=== PATIENT | female | born 2000 | race Hispanic/Latino ===

== ENCOUNTER 2018-09-12 01:53 | Inpatient (IN) | payer BC ==
[2018-09-12 02:27] LABS: Absolute Lymphocytes (CBC) 2.3 K/uL (0.7-4.9); Absolute Monocytes 0.3 K/uL (0.1-1.3); Absolute Neutrophil 2.2 K/uL (1.8-8.0); Basophils % 0.5 % (0-1.3); Eosinophils % 0.5 % (0-4.4); Hematocrit 33.2 % (36.0-45.0); Lymphocytes % 46.6 % (15.3-44.8); MCV 99.6 fL (80-100); Monocytes % 6.5 % (3.3-12.3); RBC Red Blood Cell Count 3.34 M/uL (3.86-4.86)
[2018-09-12] MEDS ORDERED: MAGNESIUM SULFATE 1 gm IVPB 1 GM/100 ML BAG IV ONE ×4 (02:31→17:59)
[2018-09-12] MEDS ORDERED: NA CHLORIDE 0.9% 1,000 ML ONE ×3 (02:31→04:07)
[2018-09-12 02:42] LABS: Protime INR 1.18
[2018-09-12 03:04] LABS: Barbiturates NEGATIVE (NEGATIVE); Benzodiazepines NEGATIVE (NEGATIVE); Cocaine NEGATIVE (NEGATIVE); METHAMPHETAM NEGATIVE (NEGATIVE); Methadone NEGATIVE (NEGATIVE); Opiates NEGATIVE (NEGATIVE); Phencyclidine NEGATIVE (NEGATIVE); THC Cannibis NEGATIVE (NEGATIVE)
[2018-09-12 03:19] LABS: ALT/SGPT 27 U/L (12-78); AST/SGOT 17 U/L (15-37); Albumin 3.6 g/dL (3.4-5.0); Alkaline Phosphatase 66 U/L (45-117); BUN Blood Urea Nitrogen 9 mg/dL (7-18); Bicarbonate 20 mmol/L (21-32); Bilirubin Direct 0.2 mg/dL (0-0.2); Bilirubin Total 0.4 mg/dL (0.2-1.0); Glucose Level 198 mg/dL (74-106); Magnesium 1.8 mg/dL (1.8-2.4); NT PRO-BNP 14 pg/mL (<125); Sodium Level 139 mmol/L (136-145); Troponin (Emerg Dept Use Only) < 0.02 ng/mL (0.0-0.045)
[2018-09-12 03:34] LABS: Potassium 2.8 mmol/L (3.5-5.1)
[2018-09-12 03:36] LABS: Urine Blood 2+ (NEG); Urine Glucose 2+ (NEG); Urine Protein NEGATIVE (NEG); Urine Specific Gravity >1.030 (1.005-1.030)
[2018-09-12 03:36] LABS: Urine Specific Gravity >1.030 (1.005-1.030)
--- NOTE | 2018-09-12 03:45 | ER ---
Nurse's Notes [facility] Name: Celeste Martinez Age: 18 yrs Sex: Female : 2000 Arrival Date: 09/12/2018 Time: 01:55 Bed 3 Private MD: Diagnosis: Suicide attempt-seroquel, alcohol, tylenol overdose;Hypokalemia;Urinary tract infection, site not specified Presentation: 09/12 01:59 Presenting complaint: EMS states: Tone up for an overdose of Seroquel, Tylenol, and ao unknown amount of ETOH. A suicidal note was found where patient states she took 22 pills. Prescription of Seroquel was fill on 09/07/2018 and 9 pill was left when patient was found. Unknown amount of Tylenol and unknown amount of ETOH. Poison control was called by EMS and Bruce Mcgarry from poison control recommends seizure precautions and magnesium. Transition of care: patient was not received from another setting of care. Onset of symptoms was September 12, 2018 at 00:00. Risk Assessment: Do you want to hurt yourself or someone else? Patient reports no desire to harm self or others. Initial Sepsis Screen: Does the patient meet any 2 criteria? Temp <36.0*C (96.8*F)) or > 38.3*C (100.9*F). Systolic BP < 90 mmHg. Altered Mental Status. No. Patient's initial sepsis screen is negative. Does the patient have a suspected source of infection? No. Patient's initial sepsis screen is negative. Care prior to arrival: Medication(s) given: Normal saline infusion, 300 Ml IV initiated. 20 GA, in the right antecubital area. 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 - Social history:: Smoking status: . - Family history:: not pertinent. - Ebola Screening: : No symptoms or risks identified at this time. Screenin:42 Abuse screen: Denies threats or abuse. Denies injuries from another. Nutritional ao screening: No deficits noted. Tuberculosis screening: No symptoms or risk factors identified. Fall Risk IV access (20 points). Gait- Impaired (20 pts.). Mental Status- Overestimates/Forgets Limitations (15 pts.). Assessment: 02:15 General: Appears ill, Behavior is Responds to painful stimuli. Pain: Unable to use pain ea scale. FLACC scale score is 0 out of 10. Neuro: Level of Consciousness is Responds to painful stimuli follows some commands at times. Oriented to none Pupils are pinpoint. Cardiovascular: Heart tones S1 S2 present. Respiratory: Airway is patent Respiratory effort is even, unlabored, Respiratory pattern is regular, symmetrical. Respiratory: Breath sounds are clear bilaterally. GI: Bowel sounds present X 4 quads. Derm: Skin is moist, Skin is pale, Skin temperature is cool. Derm: Bear hugger placed on pt. 02:56 Reassessment: Spoke to Augustin from poison control to confirm given recommendations by ao EMS. Recommendations are seizures precautions, To recheck Tylenol level within 4 hours, IV fluids, Labs BNP, CBC, Toxicity level and a psych consult. 03:41 Reassessment: Patient and/or family updated on plan of care and expected duration. Pain ea level reassessed. Pt resting with eyes closed, respirations even and unlabored, chest expansions even and symmetrical. No s/s of pain or discomfort noted at this time. Family remains at bedside. 04:50 Reassessment: Patient and/or family updated on plan of care and expected duration. Pain ea level reassessed. Pt resting with eyes closed, respirations even and unlabored, chest expansions even and symmetrical. No s/s of pain or discomfort noted at this time. Pt awakens to painful stimuli or loud verbal stimuli. 05:21 Reassessment: Patient and/or family updated on plan of care and expected duration. Pain ea level reassessed. Respiratory at bedside. 05:32 Reassessment: Patient and/or family updated on plan of care and expected duration. Pain ea level reassessed. Report called to Receiving nurse in ICU. 06:00 Reassessment: Patient and/or family updated on plan of care and expected duration. Pain ea level reassessed. Pt returned from CT, tech reports patient was shaking after finishing her CT, BP 80/34, HR 137 provider notified, order obtained for NS bolus. Pt tolerating well. 06:08 Reassessment: Pt continues to get NS, BP 90/40, pt resting with eyes closed, ea respirations even and unlabored, provider gave ok to transfer to ICU. Pt left ED via stretcher per nurse and quality control lab tech. Psych: 02:15 Objective:. Interventions: Removed personal items and placed in bag. Patient placed in ea hospital gown. Suicide Risk Assessment: Sad Person Scale: Sex of patient: Female: Score 0 points. Age of patient: Score 1 point if patient 15-34. Safety Checks: personal items given to family. pt non responsive, unable to answer question. Vital Signs: 02:10 BP 91 / 56; Pulse 126; Resp 18; Temp 95.3(R); Pulse Ox 100% on R/A; Weight 54.43 kg; ao Height 5 ft. 4 in. (162.56 cm); 03:00 BP 95 / 45 LA Supine (auto/pedi); Pulse 127; Resp 12 S; Temp 96.2(A); Pulse Ox 100% on ds4 R/A; 03:54 BP 102 / 53 LA Supine (auto/pedi); Pulse 120 MON; Resp 10 S; Temp 97.5(A); Pulse Ox 99% ds4 on R/A; 04:46 BP 98 / 43 LA Supine (auto/pedi); Pulse 134 MON; Resp 20 S; Temp 97.6(A); Pulse Ox 96% ds4 on R/A; 05:00 BP 90 / 46; Pulse 120; Resp 16; Pulse Ox 97% ; ea 06:08 BP 90 / 40; Pulse 135; Resp 16; Temp 97.6(A); Pulse Ox 98% ; ea 02:10 Body Mass Index 20.60 (54.43 kg, 162.56 cm) ao ED Course: 01:55 Patient arrived in ED. ao 01:56 Miguel Angel Sorensen MD is Attending Physician. sugey 02:10 Triage completed. ao 02:11 Arm band placed on right wrist. Patient placed in an exam room, on a stretcher, on ao classroom monitor, on pulse oximetry, Patient notified of wait time. 02:15 Eve Roberts, RN is Primary Nurse. ea 02:15 Safety checks: Door open/sign placed on door: yes. Family/friend present: yes. ds4 Family/friends encouraged to stay with patient. Sitter present: Yes. 02:22 X-ray completed. Portable x-ray completed in exam room. Patient tolerated procedure ls3 well. 02:24 XRAY Chest (1 view) In Process Unspecified. EDMS 02:30 Safety checks: Door open/sign placed on door: yes. Family/friend present: yes. ds4 Family/friends encouraged to stay with patient. Sitter present: Yes. 02:30 EKG done, by ED staff, reviewed by Miguel Angel Sorensen MD. ds4 02:41 Urine --Ancillary (enter results) Sent. ds4 02:41 Urine Dipstick--Ancillary (enter results) Sent. ds4 02:41 Basic Metabolic Panel Sent. ds4 02:41 Acetaminophen Level Sent. ds4 02:41 Magnesium Sent. ds4 02:41 NT PRO-BNP Sent. ds4 02:41 Troponin (emerg Dept Use Only) Sent. ds4 02:41 Acetaminophen Sent. ds4 02:41 Basic Metabolic Panel Sent. ds4 02:42 Hepatic Function Sent. ds4 02:42 PT-INR Sent. ds4 02:42 Salicylate Sent. ds4 02:42 Urine Drug Screen Sent. ds4 02:43 Patient has correct armband on for positive identification. Allergy band placed. Placed ao in gown. Bed in low position. Call light in reach. Adult w/ patient. Seizure precautions initiated. Sitter at bedside. Pulse ox on. NIBP on. 02:43 secured entrance monitor on. ao 02:45 Safety checks: Door open/sign placed on door: yes. Family/friend present: yes. ds4 Family/friends encouraged to stay with patient. Sitter present: Yes. 03:00 Safety checks: Door open/sign placed on door: yes. Family/friend present: yes. ds4 Family/friends encouraged to stay with patient. Sitter present: Yes. 03:15 Safety checks: Door open/sign placed on door: yes. Family/friend present: yes. ds4 Family/friends encouraged to stay with patient. Sitter present: Yes. 03:30 Safety checks: Door open/sign placed on door: yes. Family/friend present: yes. ds4 Family/friends encouraged to stay with patient. Sitter present: Yes. 03:44 Michelle Pelletier MD is Hospitalizing Provider. [facility] 03:45 Safety checks: Door open/sign placed on door: yes. Family/friend present: yes. ds4 Family/friends encouraged to stay with patient. Sitter present:. 04:00 Safety checks: Door open/sign placed on door: yes. Family/friend present: yes. ds4 Family/friends encouraged to stay with patient. Sitter present: Yes. 04:06 Phosphorus Sent. ds4 04:06 Tylenol Level Sent. ds4 04:15 Safety checks: Door open/sign placed on door: yes. Family/friend present: yes. ds4 Family/friends encouraged to stay with patient. Sitter present: Yes. 04:30 Safety checks: Door open/sign placed on door: yes. Family/friend present: yes. ds4 Family/friends encouraged to stay with patient. Sitter present: Yes. 04:45 Safety checks: Door open/sign placed on door: yes. Family/friend present: yes. ds4 Family/friends encouraged to stay with patient. Sitter present: Yes. 04:53 No provider procedures requiring assistance completed. Patient admitted, IV remains in ea place. 05:00 Safety checks: Door open/sign placed on door: yes. Family/friend present: yes. ds4 Family/friends encouraged to stay with patient. Sitter present: Yes. 05:15 Safety checks: Door open/sign placed on door: yes. Family/friend present: yes. ds4 Family/friends encouraged to stay with patient. Sitter present: Yes. 05:30 Safety checks: Door open/sign placed on door: yes. Family/friend present: no. Sitter ds4 present: Yes. 05:[address] via stretcher. kw1 05:38 CT completed. Patient tolerated procedure well. Patient moved to CT Patient moved back kw1 from CT. 05:45 Safety checks: Door open/sign placed on door: yes. Family/friend present: no. Sitter ds4 present: Yes. Administered Medications: 02:40 Drug: NS 0.9% 1000 ml Route: IV; Rate: 1 bolus; Site: right antecubital; ea 03:20 Follow up: Response: No adverse reaction; IV Status: Completed infusion; IV Intake: ea 1000ml 02:40 Drug: Magnesium Sulfate 1 grams Route: IVPB; Infused Over: 1 hrs; Site: right ea antecubital; 03:30 Follow up: Response: No adverse reaction; IV Status: Completed infusion; IV Intake: ea 100ml 03:34 Drug: NS 0.9% 1000 ml Route: IV; Rate: 1 bolus; Site: right antecubital; ea 04:42 Follow up: Response: No adverse reaction; IV Status: Completed infusion ea 03:50 Drug: Thiamine 100 mg Route: IV; Rate: bolus; Site: left antecubital; ea 04:35 Follow up: Response: No adverse reaction; IV Status: Completed infusion ea 03:51 Not Given (Duplicate Order): NS 0.9% with KCl 20 mEq/L 1000 ml IV at 125 ml/hr sugey continuous 03:53 CANCELLED (Duplicate Order): Banana Bag - (NS 0.9% 1000 ml, foLIC Acid 1 mg, Thiamine sugey 100 mg, Multivitamin 1 amp) IV at 125 ml/hr once; 20 meq of kcl, 1 gm magnesium 03:55 Drug: Rocephin - (cefTRIAXone) 1 grams Route: IVPB; Infused Over: 30 mins; Site: left ea antecubital; 04:35 Follow up: Response: No adverse reaction; IV Status: Completed infusion ea 04:00 Drug: Potassium Chloride 20 mEq Route: IV; Rate: per protocol; Site: right antecubital; ea 06:43 Follow up: IV Status: Infusion continued upon admission ea 04:00 Drug: Potassium Chloride 20 mEq Route: IV; Rate: per protocol; Site: left antecubital; ea 06:42 Follow up: IV Status: Infusion continued upon admission ea 04:05 Drug: Banana Bag - (NS 0.9% 1000 ml, foLIC Acid 1 mg, Thiamine 100 mg, Multivitamin 1 ea amp) Route: IV; Rate: 125 ml/hr; Site: left antecubital; 05:41 Follow up: IV Status: Infusion continued upon admission ea Intake: 03:20 IV: 1000ml; Total: 1000ml. ea 03:30 IV: 100ml; Total: 1100ml. ea Outcome: 03:45 Decision to Hospitalize by Provider. sugey 06:40 Admitted to ICU accompanied by nurse, accompanied by tech, via stretcher, room 6, on ea monitor, with chart, Report called to Receiving nurse in ICU 06:40 Condition: stable 06:44 Patient left the ED. ea Signatures: Dispatcher [employer] Miguel Angel Livingston MD MD cha Swanson, Donovan ds4 Marvin Mccarthy, RN RN Eve Bower RN RN ea Wilhelm, Kimberly kw1 Archana Jackson ls3 Corrections: (The following items were deleted from the chart) 03:05 03:00 BP 95 / 45 Supine Auto L Arm Pedi; Pulse 127bpm; Resp 16bpm; Spontaneous; Pulse ds4 Ox 100% RA; ds4 05:56 05:45 Safety checks: Door open/sign placed on door: yes. Family/friend present: no. ds4 Sitter present: Yes. ds4 05:56 05:45 Safety checks: Family/friend present: no. ds4 ds4
--- NOTE | 2018-09-12 03:46 | EDPHYS ---
Physician Documentation [facility] Name: Celeste Martinez Age: 18 yrs Sex: Female : 2000 Arrival Date: 09/12/2018 Time: 01:55 Bed 3 Private MD: ED Physician Miguel Angel Sorensen HPI: 09/12 01:58 This 18 yrs old Female presents to ER via Unassigned with complaints of sugey Overdose, Suicidal Ideation. 01:58 The patient presents to the emergency department after a known overdose, that was sugey intentional. Context: Method: the patient has a confirmed or suspected ingestion, seroquel, alcohol, tylenol. Associated signs and symptoms: Pertinent positives:. Severity of symptoms: At their worst the symptoms were mild moderate in the emergency department the symptoms are unchanged. The patient has not experienced similar symptoms in the past. 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 - Social history:: Smoking status: . - Family history:: not pertinent. - Ebola Screening: : No symptoms or risks identified at this time. ROS: 01:58 Constitutional: Negative for fever, chills, and weight loss, Eyes: Negative for injury, sugey pain, redness, and discharge, ENT: Negative for injury, pain, and discharge, Neck: Negative for injury, pain, and swelling, Cardiovascular: Negative for chest pain, palpitations, and edema, Respiratory: Negative for shortness of breath, cough, wheezing, and pleuritic chest pain, Abdomen/GI: Negative for abdominal pain, nausea, vomiting, diarrhea, and constipation, Back: Negative for injury and pain, : Negative for injury, bleeding, discharge, and swelling, MS/Extremity: Negative for injury and deformity, Skin: Negative for injury, rash, and discoloration, Allergy/Immunology: Negative for hives, rash, and allergies, Endocrine: Negative for neck swelling, polydipsia, polyuria, polyphagia, and marked weight changes, Hematologic/Lymphatic: Negative for swollen nodes, abnormal bleeding, and unusual bruising. 01:58 Neuro: Positive for altered mental status, weakness. :58 Psych: Positive for depression, suicide gesture. Exam: :58 Constitutional: This is a well developed, well nourished patient who is awake, alert, sugey and in no acute distress. Head/Face: Normocephalic, atraumatic. Eyes: Pupils equal round and reactive to light, extra-ocular motions intact. Lids and lashes normal. Conjunctiva and sclera are non-icteric and not injected. Cornea within normal limits. Periorbital areas with no swelling, redness, or edema. ENT: Nares patent. No nasal discharge, no septal abnormalities noted. Tympanic membranes are normal and external auditory canals are clear. Oropharynx with no redness, swelling, or masses, exudates, or evidence of obstruction, uvula midline. Mucous membranes moist. Neck: Trachea midline, no thyromegaly or masses palpated, and no cervical lymphadenopathy. Supple, full range of motion without nuchal rigidity, or vertebral point tenderness. No Meningismus. Chest/axilla: Normal chest wall appearance and motion. Nontender with no deformity. No lesions are appreciated. Cardiovascular: Regular rate and rhythm with a normal S1 and S2. No gallops, murmurs, or rubs. Normal PMI, no JVD. No pulse deficits. Respiratory: Lungs have equal breath sounds bilaterally, clear to auscultation and percussion. No rales, rhonchi or wheezes noted. No increased work of breathing, no retractions or nasal flaring. Abdomen/GI: Soft, non-tender, with normal bowel sounds. No distension or tympany. No guarding or rebound. No evidence of tenderness throughout. Back: No spinal tenderness. No costovertebral tenderness. Full range of motion. Skin: Warm, dry with normal turgor. Normal color with no rashes, no lesions, and no evidence of cellulitis. MS/ Extremity: Pulses equal, no cyanosis. Neurovascular intact. Full, normal range of motion. 01:58 Neuro: Orientation: unable to test, Mentation: slow to respond, confused, Memory: unable to test, Cranial nerves: is grossly normal based on the patient's age, no acute changes, Motor: moves all fours, Gait: not tested. Deep tendon reflexes are 2+ (normal) in the bilateral brachioradialis, bicep, tricep and patellar and Achilles tendons, seizure activity, is not displayed by the patient. Vital Signs: 02:10 BP 91 / 56; Pulse 126; Resp 18; Temp 95.3(R); Pulse Ox 100% on R/A; Weight 54.43 kg; ao Height 5 ft. 4 in. (162.56 cm); 03:00 BP 95 / 45 LA Supine (auto/pedi); Pulse 127; Resp 12 S; Temp 96.2(A); Pulse Ox 100% on ds4 R/A; 03:54 BP 102 / 53 LA Supine (auto/pedi); Pulse 120 MON; Resp 10 S; Temp 97.5(A); Pulse Ox 99% ds4 on R/A; 04:46 BP 98 / 43 LA Supine (auto/pedi); Pulse 134 MON; Resp 20 S; Temp 97.6(A); Pulse Ox 96% ds4 on R/A; 05:00 BP 90 / 46; Pulse 120; Resp 16; Pulse Ox 97% ; ea 06:08 BP 90 / 40; Pulse 135; Resp 16; Temp 97.6(A); Pulse Ox 98% ; ea 02:10 Body Mass Index 20.60 (54.43 kg, 162.56 cm) ao MDM: 01:58 Data reviewed: vital signs, nurses notes, lab test result(s), EKG, radiologic studies, sugey plain films. 02:07 Patient medically screened. [facility] 09/12 01:57 Order name: Acetaminophen [facility] 09/12 01:57 Order name: Basic Metabolic Panel [facility] 09/12 01:57 Order name: CBC with Diff; Complete Time: 03:30 [facility] 09/12 01:57 Order name: ETOH Level; Complete Time: 03:30 [facility] 09/12 01:57 Order name: Hepatic Function; Complete Time: 05:02 [facility] 09/12 01:57 Order name: PT-INR; Complete Time: 03:30 [facility] 09/12 01:57 Order name: Salicylate; Complete Time: 03:30 [facility] 09/12 01:57 Order name: Urine Drug Screen; Complete Time: 03:30 [facility] 09/12 01:57 Order name: Magnesium; Complete Time: 05:02 [facility] 09/12 01:57 Order name: NT PRO-BNP; Complete Time: 05:02 [facility] 09/12 01:57 Order name: Troponin (emerg Dept Use Only); Complete Time: 05:02 [facility] 09/12 01:58 Order name: Acetaminophen Level; Complete Time: 05:02 [facility] 09/12 01:58 Order name: Basic Metabolic Panel; Complete Time: 05:02 [facility] 09/12 02:25 Order name: Urine Dipstick--Ancillary (enter results); Complete Time: 03:40 [facility] 09/12 01:57 Order name: XRAY Chest (1 view) [facility] 09/12 02:32 Order name: Urine --Ancillary (enter results); Complete Time: 03:40 [facility] 09/12 03:31 Order name: Tylenol Level; Complete Time: 05:02 [facility] 09/12 03:42 Order name: Phosphorus [facility] 09/12 03:43 Order name: Urine Culture [facility] 09/12 03:47 Order name: Phosphorus; Complete Time: 05:02 [facility] 09/12 05:02 Order name: Arterial Blood Gas aa 09/12 05:10 Order name: CT Head Brain wo Cont [facility] 09/12 05:36 Order name: ABG Arterial Blood Gas [facility] 09/12 01:57 Order name: EKG; Complete Time: 01:59 [facility] 09/12 01:57 Order name: EKG - Nurse/Tech; Complete Time: 02:38 [facility] 09/12 01:57 Order name: IV Saline Lock; Complete Time: 02:38 [facility] 09/12 01:57 Order name: Labs collected and sent; Complete Time: 02:38 [facility] 09/12 01:57 Order name: Urine Dipstick-Ancillary (obtain specimen); Complete Time: 02:38 [facility] 09/12 01:57 Order name: Cardiac monitoring; Complete Time: 02:22 [facility] 09/12 01:57 Order name: O2 Per Protocol; Complete Time: 02:22 [facility] 09/12 01:57 Order name: O2 Sat Monitoring; Complete Time: 02:22 [facility] 09/12 02:03 Order name: Urine Test (obtain specimen); Complete Time: 02:41 [facility] Administered Medications: 02:40 Drug: NS 0.9% 1000 ml Route: IV; Rate: 1 bolus; Site: right antecubital; ea 03:20 Follow up: Response: No adverse reaction; IV Status: Completed infusion; IV Intake: ea 1000ml 02:40 Drug: Magnesium Sulfate 1 grams Route: IVPB; Infused Over: 1 hrs; Site: right ea antecubital; 03:30 Follow up: Response: No adverse reaction; IV Status: Completed infusion; IV Intake: ea 100ml 03:34 Drug: NS 0.9% 1000 ml Route: IV; Rate: 1 bolus; Site: right antecubital; ea 04:42 Follow up: Response: No adverse reaction; IV Status: Completed infusion ea 03:50 Drug: Thiamine 100 mg Route: IV; Rate: bolus; Site: left antecubital; ea 04:35 Follow up: Response: No adverse reaction; IV Status: Completed infusion ea 03:51 Not Given (Duplicate Order): NS 0.9% with KCl 20 mEq/L 1000 ml IV at 125 ml/hr sugey continuous 03:53 CANCELLED (Duplicate Order): Banana Bag - (NS 0.9% 1000 ml, foLIC Acid 1 mg, Thiamine sugey 100 mg, Multivitamin 1 amp) IV at 125 ml/hr once; 20 meq of kcl, 1 gm magnesium 03:55 Drug: Rocephin - (cefTRIAXone) 1 grams Route: IVPB; Infused Over: 30 mins; Site: left ea antecubital; 04:35 Follow up: Response: No adverse reaction; IV Status: Completed infusion ea 04:00 Drug: Potassium Chloride 20 mEq Route: IV; Rate: per protocol; Site: right antecubital; ea 06:43 Follow up: IV Status: Infusion continued upon admission ea 04:00 Drug: Potassium Chloride 20 mEq Route: IV; Rate: per protocol; Site: left antecubital; ea 06:42 Follow up: IV Status: Infusion continued upon admission ea 04:05 Drug: Banana Bag - (NS 0.9% 1000 ml, foLIC Acid 1 mg, Thiamine 100 mg, Multivitamin 1 ea amp) Route: IV; Rate: 125 ml/hr; Site: left antecubital; 05:41 Follow up: IV Status: Infusion continued upon admission ea Disposition: 09/12/18 03:45 Hospitalization ordered by Michelle Pelletier for Inpatient Admission. Preliminary diagnosis are Suicide attempt - seroquel, alcohol, tylenol overdose, Hypokalemia, Urinary tract infection, site not specified. - Bed requested for Intensive Care Unit. - Status is Inpatient Admission. ea - Condition is Fair. - Problem is new. - Symptoms have improved. UTI on Admission? Yes Signatures: Dispatcher [employer] EDMS Kathryn London RN RN kl Anderson, Corey, MD MD cha Ortiz, Alex, RN RN ao Antunez, Elena, RN RN ea Corrections: (The following items were deleted from the chart) 03:47 03:42 Phosphorus ordered. [facility] 03:53 03:52 Banana Bag - (Multivitamin 1 amp, NS 0.9% 1000 ml, Thiamine 100 mg, foLIC Acid 1 sugey mg) IV at 125 ml/hr once; 20 meq of kcl, 1 gm magnesium ordered. [facility] 05:11 03:45 Hospitalization Ordered by Michelle Pelletier MD for Inpatient Admission. Preliminary diagnosis is Suicide attempt - seroquel, alcohol, tylenol overdose; Hypokalemia; Urinary tract infection, site not specified. Bed requested for Intensive Care Unit. Status is Inpatient Admission. Condition is Fair. Problem is new. Symptoms have improved. UTI on Admission? Yes. [facility] 06:44 05:11 09/12/2018 03:45 Hospitalization Ordered by Michelle Pelletier MD for Inpatient ea Admission. Preliminary diagnosis is Suicide attempt - seroquel, alcohol, tylenol overdose; Hypokalemia; Urinary tract infection, site not specified. Bed requested for Intensive Care Unit. Status is Inpatient Admission. Condition is Fair. Problem is new. Symptoms have improved. UTI on Admission? Yes. [place]
[2018-09-12 04:00] LABS: Phosphorus 4.1 mg/dL (2.5-4.9)
[2018-09-12] MEDS ORDERED: THIAMINE 200 MG/2 ML INJ ONE (04:01)
[2018-09-12] MEDS ORDERED: KCL 20 MEQ/100 mL IVPB 40 MEQ/200 ML BAG IV ONE (04:01)
[2018-09-12] MEDS ORDERED: NS KCL 20MEQ 1,000 ML IV ONE (04:01)
[2018-09-12] MEDS ORDERED: CEFTRIAXONE/SWI 1gm 1 GM/10 ML SYR ONE (04:02)
[2018-09-12] MEDS ORDERED: D50W 25 GM/50 ML SYRINGE IV ONE (04:07)
[2018-09-12] MEDS ORDERED: MULTIVITAMINS 10 ML VIAL (INJ) IV ONE (04:08)
--- NOTE | 2018-09-12 04:52 | P.HP ---
Certification for Inpatient Patient admitted to: Inpatient With expected LOS: >2 Midnights Practitioner: I am a practitioner with admitting privileges, knowledge of patient current condition, hospital course, and medical plan of care. Services: Services provided to patient in accordance with Admission requirements found in Title 42 Section 412.3 of the Code of Federal Regulations Patient History Date of Service: 09/12/18 Reason for admission: Suicidal attempt History of Present Illness: Ms Martinez is 18-year-old woman with history of major depressive syndrome in context of bipolar disorder, with previous suicidal ideation episodes, was found by her boyfriend unresponsive with a suicide note around 1:00 a.m. Apparently she took about 20 to pills of Seroquel, unknown amount of Tylenol, mixed with Alcohol. At arrival the patient was unresponsive, tachycardic with low template. Lab work remarkable for hypokalemia 2.6, acetaminophen level 37.2 , 2 hr later monitor on revealed trending down, for level is 35.7. UA abnormal consistent with UTI. EKG shows sinus tach with short IN interval. Allergies No Known Allergies Allergy (Verified 08/05/17 16:29) Home medications list reviewed: Yes Home Medications: Bupropion HCl [Wellbutrin Xl] 150 mg PO DAILY 08/05/17 Medroxyprogester [Depo Provera] 150 mg IM ONCE 08/05/17 Omeprazole [Prilosec] 40 mg PO DAILY 08/05/17 Quetiapine Fumarate [Seroquel] 400 mg PO BEDTIME 08/05/17 Codeine/APAP [Tylenol W/Codeine #3 tab] 1 tab PO Q4HP PRN #30 tab 08/06/17 Sulfamethoxazole/Trimethoprim [Bactrim Ds Tablet] 1 each PO BID #12 tablet 08/06 - Past Medical/Surgical History -: Bipolar disorder -: Suicidal ideation Past Surgical History: Reviewed- Non-Contributory - Family History Family History: Reviewed- Non-Contributory - Social History Smoking Status: Current some day smoker (Vaporing) Alcohol use: Yes CD- Drugs: No Place of Residence: Home Review of Systems is unable to be obtained (Patient is unresponsive) Physical Examination - Physical Exam General: Unresponsive (She respond to noxious stimulus) HEENT: Atraumatic, Mucous membr. moist/pink, Sclerae nonicteric Neck: Supple, 2+ carotid pulse no bruit, No LAD, Without JVD or thyroid abnormality Respiratory: Clear to auscultation bilaterally, Normal air movement Cardiovascular: Regular rate/rhythm (Tachycardic), Normal S1 S2 Gastrointestinal: Normal bowel sounds, No tenderness Musculoskeletal: No tenderness Integumentary: No rashes Neurological: Sensation intact, Abnormal tone (Flaccid), Abnormal affect Lymphatics: No axilla or inguinal lymphadenopathy - Studies Laboratory Data (last 24 hrs) 09/12/18 03:42: Phosphorus Cancelled 09/12/18 02:00: PT 14.0 H, INR 1.18 09/12/18 02:00: WBC 4.9, Hgb 11.7 L, Hct 33.2 L, Plt Count 230 09/12/18 02:00: Sodium 139, Potassium 2.8 L*, BUN 9, Creatinine 0.70, Glucose 198 H, Phosphorus 4.1, Magnesium 1.8, Total Bilirubin 0.4, AST 17, ALT 27, Alkaline Phosphatase 66 Assessment and Plan - Problems (Diagnosis) (1) Suicide attempt by acetaminophen overdose Current Visit: Yes Status: Acute Qualifiers: Encounter type: initial encounter Qualified Code(s): T39.1X2A - Poisoning by 4-Aminophenol derivatives, intentional self-harm, initial encounter (2) Seroquel overdose Current Visit: Yes Status: Acute (3) Hypokalemia Current Visit: Yes Status: Acute (4) Bipolar disorder current episode depressed Current Visit: Yes Status: Acute Qualifiers: Current episode severity: unspecified Qualified Code(s): F31.30 - Bipolar disorder, current episode depressed, mild or moderate severity, unspecified - Plan The patient will be admitted to ICU for close monitoring due to suicidal intent with acetaminophen on Seroquel overdose. Poison Control was contacted and the recommends to have seizures precaution. Current acetaminophen level is trending down. Liver function test is within normal limit. She is on 72 hr hold. The patient will be transferred to psychiatric facility once she is medically cleared. - Advance Directives Does patient have a Living Will: No Does patient have a Durable POA for Healthcare: No - Code Status/Comfort Care Code Status Assessed: Yes Code Status: Full Code
[2018-09-12 05:26] LABS: Arterial Blood Carboxyhemoglob 0.7 % (0-1.5); Blood Gas Oxyhemoglobin 93.1 % (94-97); Blood O2 Saturation 94.6 % (92-98.5)
[2018-09-12] MEDS: NA CHLORIDE 0.9% 1,000 ML IV SCH ×2 (05:39→07:25)
[2018-09-12] MEDS ORDERED: NA CHLORIDE 0.9% 2,000 ML ONE (06:04)
[2018-09-12] MEDS: FOLIC ACID 1 MG, MULTIVITAMINS INJ 10 ML, THIAMINE HCL 100 MG in NA CHLORIDE 0.9% 1,000 ML IV SCH (07:06)
[2018-09-12] MEDS ORDERED: NA CHLORIDE 0.9% 500 ML IV ONE (07:51)
--- NOTE | 2018-09-12 08:49 | P.PN ---
Subjective Date of Service: 09/12/18 Primary Care Provider: Dr. Duff Chief Complaint: Suicidal attempt Subjective: Other (Increased sedation. Poor response to stimuli. Patient had seizure-like activity that resolved as per nursing.) Physical Examination - Vital Signs Temperature: 97.6 F Blood Pressure: 91/40 Pulse: 131 Respirations: 13 Pulse Ox (%): 94 - Physical Exam General: Other (Increase sedation. Response to painful stimuli noted.) HEENT: Atraumatic Neck: Supple Respiratory: Clear to auscultation bilaterally, Normal air movement Cardiovascular: Normal pulses, Regular rate/rhythm Gastrointestinal: Normal bowel sounds, Soft and benign, Non-distended, No masses , No rebound, No guarding Musculoskeletal: No erythema, No tenderness, No warmth Integumentary: No erythema, No warmth, No cyanosis Neurological: Other (Increase sedation noted. Response to painful stimuli noted. ) - Studies Laboratory Data (last 24 hrs) 09/12/18 03:42: Phosphorus Cancelled 09/12/18 02:00: PT 14.0 H, INR 1.18 09/12/18 02:00: WBC 4.9, Hgb 11.7 L, Hct 33.2 L, Plt Count 230 09/12/18 02:00: Sodium 139, Potassium 2.8 L*, BUN 9, Creatinine 0.70, Glucose 198 H, Phosphorus 4.1, Magnesium 1.8, Total Bilirubin 0.4, AST 17, ALT 27, Alkaline Phosphatase 66 Assessment & Plan Discharge Plan: Psychiatry Plan to discharge in: Greater than 2 days Physician Review Additional Text: Impression: Intentional suicide attempt with Seroquel and Tylenol overdose complicated with alcohol abuse Seizure activity likely from sequela of overdose, provoked Acute encephalopathy secondary to Tylenol/Seroquel overdose and UTI with possible sepsis Hypokalemia Dehydration with noted hypotension Bipolar disorder Anemia, mild Plan: Intentional suicide attempt with Seroquel and Tylenol overdose complicated with alcohol abuse: Patient currently in ICU. Will monitor closely. Patient had seizure-like activity early this morning. Will provide Ativan as needed for seizure. Aspiration precaution in place. Seizure precaution in place. Case discussed at length with Neurology. If patient has another episode of seizures then will start IV Keppra. Seizure activity likely related to sequela of overdose medication-Seroquel. Poison Control has been called from the very beginning. They have been updated. Patient given magnesium upon admission. Repeat dose of magnesium given this morning. Potassium supplementation also given. Patient has been given several liters of IV fluids due to dehydration and hypotension. Will continue with aggressive IV fluids. No need for treatment of elevated Tylenol level. This was discussed with poison control who agrees. Patient appears to have a UTI. Patient on IV antibiotic therapy. Will obtain urine and blood culture. Will consult Dr. Stratton for ICU management. Patient has a halfway to remain in the hospital. Patient will require psychiatric evaluation once medically stable. Seizure activity likely from sequela of overdose, provoked: Ativan has been ordered in the event of another seizure. If another seizure presents then the patient will require Keppra IV. Case discussed at length with Neurology. Will continue monitor closely. Seizure-like activity likely provoked from overdose of medication. Acute encephalopathy secondary to Tylenol/Seroquel overdose and UTI with possible sepsis: Continue as above. Continue with IV antibiotic therapy, aggressive IV fluids, and monitoring for further seizures. Will continue to update poison control. Hypokalemia: Will monitor and replace appropriately. Will monitor electrolytes. Dehydration with noted hypotension: Continue with aggressive IV fluid hydration. Bipolar disorder: Will hold medication at this time. Will monitor closely. Patient will need psychiatric evaluation once medically stable. Anemia, mild: This is likely dilutional from IV fluids. Will monitor closely. Time Spent Managing Pts Care (In Minutes): 75
[2018-09-12] MEDS: NACHLORIDE 0.45% 1,000 ML IV SCH ×2 (08:54→15:15)
[2018-09-12] MEDS: LORazepam 2 MG/ML VIAL IV PRN ×2 (08:57→23:14)
[2018-09-12] MEDS ORDERED: CEFTRIAXONE 1 GM/NS 50 ML 1 GM/50 ML BAG IV SCH (09:00)
--- NOTE | 2018-09-12 09:02 | RAD REPORT ---
EXAM DESCRIPTION: Zackery Single View09/12/2018 2:24 am CLINICAL HISTORY: cough COMPARISON: none FINDINGS: The lungs appear clear of acute infiltrate. The heart is normal size IMPRESSION: No acute abnormalities displayed
--- NOTE | 2018-09-12 09:15 | RAD REPORT ---
EXAM DESCRIPTION: CT - Head Brain Wo Cont - 09/12/2018 6:38 am CLINICAL HISTORY: Alteration of awareness/confusion COMPARISON: None. TECHNIQUE: Computed axial tomography of the head was obtained. IV contrast was not requested.Ryani bria report was generated by [employer] and reviewed prior to this dictation All CT scans are performed using dose optimization technique as appropriate and may include automated exposure control or mA/KV adjustment according to patient size. FINDINGS: An intracranial bleed is not seen . The ventricles are normal in caliber. No extra-axial fluid collection is noted. Fluid within the sinuses/ mastoids is not seen. IMPRESSION: No acute intracranial abnormality is seen. If patient's symptoms persist MRI of the bra in would be recommended.
[2018-09-12 09:18] LABS: ALT/SGPT 16 U/L (12-78); AST/SGOT 26 U/L (15-37); Albumin 3.1 g/dL (3.4-5.0); Alkaline Phosphatase 136 U/L (45-117); BUN Blood Urea Nitrogen 8 mg/dL (7-18); Bicarbonate 21 mmol/L (21-32); Bilirubin Total 0.2 mg/dL (0.2-1.0); Glucose Level 132 mg/dL (74-106); Magnesium 2.3 mg/dL (1.8-2.4); Potassium 4.3 mmol/L (3.5-5.1); Protein, Total 7.2 g/dL (6.4-8.2); Sodium Level 133 mmol/L (136-145)
[2018-09-12] MEDS ORDERED: levETIRAcetam 1,000 MG in NA CHLORIDE 0.9% 100 ML IV ONE (10:00)
[2018-09-12 15:19] LABS: Blood Gas Oxyhemoglobin 95.1 % (94-97); Blood O2 Saturation 96.4 % (92-98.5)
[2018-09-12] MEDS: levETIRAcetam 500 MG in NA CHLORIDE 0.9% 100 ML IV SCH (20:45)
[2018-09-12] MEDS: ONDANSETRON 4 MG/2 ML VIAL IV PRN (20:54)
[2018-09-13] MEDS: NACHLORIDE 0.45% 1,000 ML IV SCH ×4 (01:18→22:20)
[2018-09-13 06:58] LABS: Absolute Lymphocytes (CBC) 0.7 K/uL (0.7-4.9); Absolute Monocytes 0.3 K/uL (0.1-1.3); Basophils % 0.1 % (0-1.3); Eosinophils % 0.1 % (0-4.4); Hematocrit 35.3 % (36.0-45.0); Lymphocytes % 7.4 % (15.3-44.8); MCH 34.5 pg (27.0-35.0); MCV 98.6 fL (80-100); MPV 8.3 fL (7.6-11.3); Monocytes % 3.2 % (3.3-12.3); RBC Red Blood Cell Count 3.58 M/uL (3.86-4.86)
[2018-09-13 07:05] LABS: ALT/SGPT 20 U/L (12-78); AST/SGOT 20 U/L (15-37); Albumin 2.7 g/dL (3.4-5.0); Alkaline Phosphatase 44 U/L (45-117); BUN Blood Urea Nitrogen 3 mg/dL (7-18); Bicarbonate 21 mmol/L (21-32); Bilirubin Total 0.5 mg/dL (0.2-1.0); Glucose Level 93 mg/dL (74-106); Magnesium 2.4 mg/dL (1.8-2.4); Phosphorus 3.1 mg/dL (2.5-4.9); Potassium 4.4 mmol/L (3.5-5.1); Protein, Total 5.5 g/dL (6.4-8.2); Sodium Level 140 mmol/L (136-145)
[2018-09-13] MEDS: FOLIC ACID 1 MG, MULTIVITAMINS INJ 10 ML, THIAMINE HCL 100 MG in NA CHLORIDE 0.9% 1,000 ML IV SCH (08:55)
[2018-09-13] MEDS: levETIRAcetam 500 MG in NA CHLORIDE 0.9% 100 ML IV SCH ×2 (08:55→20:10)
[2018-09-13] MEDS ORDERED: CEFTRIAXONE/SWI 1gm 1 GM/10 ML SYR IV SCH (09:00)
--- NOTE | 2018-09-13 09:51 | P.PN ---
Subjective Date of Service: 09/13/18 Primary Care Provider: Dr. Duff Chief Complaint: Suicidal attempt Subjective: Other (Patient more alert today. Slight confusion noted. Patient had been complaining of left flank pain.) Physical Examination - Vital Signs Temperature: 98.4 F Blood Pressure: 92/52 Pulse: 111 Respirations: 28 Pulse Ox (%): 97 - Physical Exam General: Alert, In no apparent distress, Confused, Other (Patient more alert today. Slight confusion noted) HEENT: Atraumatic Neck: Supple Respiratory: Clear to auscultation bilaterally, Normal air movement Cardiovascular: Abnormal pulses (Sinus tachycardia improved) Gastrointestinal: Normal bowel sounds, Soft and benign, Non-distended, No tenderness, No masses, No rebound, No guarding Musculoskeletal: No erythema, No tenderness, No warmth Integumentary: No tenderness/swelling, No erythema, No warmth, No cyanosis Neurological: Other (More alert today) Assessment & Plan Discharge Plan: Psychiatry Plan to discharge in: 48 Hours Physician Review Additional Text: Impression: Intentional suicide attempt with Seroquel and Tylenol overdose complicated with alcohol abuse Seizure activity likely from sequela of overdose, provoked Acute encephalopathy secondary to Tylenol/Seroquel overdose and UTI with possible sepsis Hypokalemia Dehydration with noted hypotension Bipolar disorder Anemia, mild Left flank pain likely related to UTI Plan: Intentional suicide attempt with Seroquel and Tylenol overdose complicated with alcohol abuse: Patient remains in ICU. Poison control has given multiple recommendations with treatment plan. Patient given magnesium yesterday. Patient more alert today but still slightly confused. No more seizure activity noted. Patient remains with aspiration and seizure precaution. IV Keppra started yesterday. Will continue monitoring closely. Will decrease IV fluids. Patient had reported some left flank pain. Will check CT scan of the abdomen once more stable. This is likely from her UTI. Continue IV antibiotic therapy. Await urine culture results. Once the patient is back to her normal baseline then the patient can be further evaluated for psychiatric evaluation and transfer. Once the patient is more alert, will assess swallowing. Maybe able to start oral intake. Seizure activity likely from sequela of overdose, provoked: No more seizure- like activity. Patient now on IV Keppra. Will discuss case further with Neurology tomorrow. Will check to see if the patient will require Keppra long- term. Acute encephalopathy secondary to Tylenol/Seroquel overdose and UTI with possible sepsis: Continue as above. Continue with IV antibiotic therapy, IV fluids, and monitoring for further seizures. Will continue to update poison control. Hypokalemia: Will monitor and replace appropriately. Will monitor electrolytes. Dehydration with noted hypotension: Continue with IV fluid hydration. Bipolar disorder: Will hold medication at this time. Will monitor closely. Patient will need psychiatric evaluation once medically stable. Anemia, mild: This is likely dilutional from IV fluids. Will monitor closely. Left flank pain likely related to UTI: Will check CT scan of the abdomen and pelvis. Time Spent Managing Pts Care (In Minutes): 55
[2018-09-13 09:58] LABS: Platelet Estimate ADEQ; Urine White Blood Cell Casts OK
[2018-09-13 09:59] LABS: Blood Morphology Comment NOT SEEN (NOT SEEN)
--- NOTE | 2018-09-13 10:48 | P.CNS ---
Date of Consult: 09/12/18 Reason for Consult: Altered mental status overdose Primary Care Provider: Dr. 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 admitted with seizures and is currently on Keppra IV fluids here seizure precautions Allergies No Known Allergies Allergy (Verified 08/05/17 16:29) Home Medications: Bupropion HCl [Wellbutrin Xl] 300 mg PO DAILY 09/12/18 Cyproheptadine HCl 4 mg PO DAILY 09/12/18 Medroxyprogester [Depo Provera] 150 mg IM [facility] 09/12/18 Quetiapine Fumarate [Seroquel] 400 mg PO DAILY 09/12/18 - Past Medical/Surgical History -: Bipolar disorder -: Suicidal ideation -: Status post cholecystectomy - Social History Alcohol use: Yes CD- Drugs: No Place of Residence: Home Review of Systems is unable to be obtained Physical Examination Temp Pulse Resp BP Pulse Ox 98.4 F 111 H 28 H 92/52 L 97 09/13/18 09:51 09/13/18 09:51 09/13/18 09:51 09/13/18 09:51 09/13/18 09:51 General: Unresponsive Respiratory: Clear to auscultation bilaterally Cardiovascular: No edema, Normal S1 S2 Gastrointestinal: Normal bowel sounds, Soft and benign Musculoskeletal: No clubbing - Problems (1) Seroquel overdose Current Visit: Yes Status: Acute Plan: Patient is 18 years of age with a history of severe bipolar disorder seeing a psychiatrist in [place] she has also had multiple admissions to psychiatric facilities admitted with an intentional overdose of Seroquel. She is sick currently delirious having some seizures was started on Keppra continue monitoring so far liver function tests are normal. Tox screen is positive for acetaminophen continue monitoring blood pressures been little low
--- NOTE | 2018-09-13 10:50 | P.PN ---
Subjective Date of Service: 09/13/18 Primary Care Provider: Dr. Duff Chief Complaint: Suicidal attempt Subjective: Improving (Patient is improving she does response intermittently no history of seizures still on Keppra as agitated) Physical Examination - Vital Signs Temperature: 98.4 F Blood Pressure: 92/52 Pulse: 111 Respirations: 28 Pulse Ox (%): 97 - Physical Exam General: Oriented x2, Delirious HEENT: Other Respiratory: Clear to auscultation bilaterally Cardiovascular: No edema, Regular rate/rhythm Assessment & Plan - Problems (Diagnosis) (1) Seroquel overdose Current Visit: Yes Status: Acute Plan: Patient admitted with an overdose of Seroquel his improving still a little delirious agitated continue with present Medicaid vital signs are stable and Dc Sant[place]philib[facility] Physician Review Additional Text: Impression: Intentional suicide attempt with Seroquel and Tylenol overdose complicated with alcohol abuse Seizure activity likely from sequela of overdose, provoked Acute encephalopathy secondary to Tylenol/Seroquel overdose and UTI with possible sepsis Hypokalemia Dehydration with noted hypotension Bipolar disorder Anemia, mild Left flank pain likely related to UTI Plan: Intentional suicide attempt with Seroquel and Tylenol overdose complicated with alcohol abuse: Patient remains in ICU. Poison control has given multiple recommendations with treatment plan. Patient given magnesium yesterday. Patient more alert today but still slightly confused. No more seizure activity noted. Patient remains with aspiration and seizure precaution. IV Keppra started yesterday. Will continue monitoring closely. Will decrease IV fluids. Patient had reported some left flank pain. Will check CT scan of the abdomen once more stable. This is likely from her UTI. Continue IV antibiotic therapy. Await urine culture results. Once the patient is back to her normal baseline then the patient can be further evaluated for psychiatric evaluation and transfer. Once the patient is more alert, will assess swallowing. Maybe able to start oral intake. Seizure activity likely from sequela of overdose, provoked: No more seizure- like activity. Patient now on IV Keppra. Will discuss case further with Neurology tomorrow. Will check to see if the patient will require Keppra long- term. Acute encephalopathy secondary to Tylenol/Seroquel overdose and UTI with possible sepsis: Continue as above. Continue with IV antibiotic therapy, IV fluids, and monitoring for further seizures. Will continue to update poison control. Hypokalemia: Will monitor and replace appropriately. Will monitor electrolytes. Dehydration with noted hypotension: Continue with IV fluid hydration. Bipolar disorder: Will hold medication at this time. Will monitor closely. Patient will need psychiatric evaluation once medically stable. Anemia, mild: This is likely dilutional from IV fluids. Will monitor closely. Left flank pain likely related to UTI: Will check CT scan of the abdomen and pelvis.
--- NOTE | 2018-09-13 17:34 | EKG ---
Test Date: 2018-09-12 Test Time: 20:40:04 Electronic Calibration Technician: RT MEASUREMENT RESULTS: Intervals: Rate: 112 KS: 140 QRSD: 84 QT: 352 QTc: 480 [place]: P: 66 KS: 140 QRS: 79 T: -28 INTERPRETIVE STATEMENTS: Sinus tachycardia Nonspecific T wave abnormality Abnormal ECG Compared to ECG 09/12/2018 16:00:59 Short KS interval no longer present T-wave abnormality still present Electronically Signed On 09-13-18 17:33:27 CDT by Chad Tubbs
--- NOTE | 2018-09-13 17:35 | EKG ---
Test Date: 2018-09-12 Test Time: 16:00:59 Vessel Welder: CECIL MEASUREMENT RESULTS: Intervals: Rate: 112 AK: 96 QRSD: 86 QT: 470 QTc: 641 [place]: P: -16 AK: 96 QRS: 76 T: 14 INTERPRETIVE STATEMENTS: Sinus tachycardia with short [place] Nonspecific T wave abnormality Abnormal ECG Compared to ECG 09/12/2018 02:01:47 T-wave abnormality now present ST (T wave) deviation no longer present Electronically Signed On 09-13-18 17:33:37 CDT by Chad Tubbs
--- NOTE | 2018-09-13 17:36 | EKG ---
Test Date: 2018-09-12 Test Time: 02:01:47 Account Director: MEASUREMENT RESULTS: Intervals: Rate: 126 IA: 104 QRSD: 88 QT: 414 QTc: 599 [place]: P: 31 IA: 104 QRS: 85 T: 35 INTERPRETIVE STATEMENTS: Sinus tachycardia with short IA Nonspecific ST and T wave abnormality Abnormal ECG Compared to ECG 12/16/2017 10:55:21 Short IA interval now present ST (T wave) deviation now present Sinus rhythm no longer present Electronically Signed On 09-13-18 17:33:48 CDT by Chad Tubbs
--- NOTE | 2018-09-13 17:42 | RAD REPORT ---
EXAM DESCRIPTION: CT - Abdomen Pelvis W Contrast - 09/13/2018 5:10 pm CLINICAL HISTORY: Left-sided abdominal pain, UTI history COMPARISON: CT imaging May 2015 TECHNIQUE: Biphasic, helical CT imaging of the abdomen and pelvis was performed following 100 ml non -ionic IV contrast. Oral contrast was given. All CT scans are performed using dose optimization technique as appropriate and may include automated exposure control or mA/KV adjustment according to patient size. FINDINGS: Diffuse airspace opacification is present involving the entire visualized portion of the r ight lower lobe. Airspace opacification is seen in portions of the right middle lobe and minimally in the posterior gutter on the left. Air bronchograms are present. No cavitation. No soft tissue mass c omponent seen. There is no pericardial effusion. The liver, spleen, and pancreas show no suspicious findings. Cholecystectomy clips are present. No bi liary tree dilatation. Symmetric renal function is seen with no hydronephrosis or suspicious renal mass. Pyelonephritis is n ot suspected. Fullness of the left renal pelvis does not result in asymmetric renal function. No obst ructing stone or mass. Ureter does not appear dilated. Urinary bladder is mostly contracted around a Alexis catheter. No bladder wall thickening or mass seen. Air within the lumen is presumed to be from catheter placement. No gastric dilatation or wall thickening. Oral contrast fills the small bowel to the terminal ileum. Acute appendicitis is not suspected based on positioning of the appendix on 2014. There are clustered cysts in the right adnexa believed to be part of the right ovary. These ir 8-12 mm in size. Dilated fallopian tube is not suspected. Left ovary contains a 15 millimeter cyst. No acute uterine finding. No free air or pneumatosis. Free fluid is present in the cul-de-sac and bilateral adnexa. This is gr eater than typically seen for physiologic fluid but no etiology seen to explain the fluid. A leaking or ruptured ovarian cyst would be possible. No hernia, mass or bulky lymphadenopathy. No adrenal abn ormality. No suspicious bony findings. IMPRESSION: No free air, obstruction or surgically emergent finding. Extensive right lower lobe and right middle lobe consolidation. Less significant left base airspace o pacification present. Pneumonia is the primary consideration. This may well be aspiration given the o verdose history. Infectious pneumonia is certainly possible. No cavitation or other complicating fact or seen in these partially imaged lung manning. Right ovarian 8-12 mm cyst cluster with a single cyst on the left. Free fluid in the cul-de-sac and bilateral adnexa is greater than typically seen but may still be physiologic. Ovarian cyst rupture wo uld be possible. No other abnormality to explain this degree of fluid. Acute appendicitis is not suspected. No acute GI process seen.
[2018-09-13] MEDS: ENOXAPARIN 40 MG/0.4 ML SQ SCH (18:11)
[2018-09-13] MEDS ORDERED: AZITHROMYCIN 250 MG TAB PO ONE (18:35)
[2018-09-13] MEDS: CEFTRIAXONE/SWI 1gm 1 GM/10 ML SYR IVP SCH (19:00)
[2018-09-14 05:21] LABS: Absolute Lymphocytes (CBC) 1.3 K/uL (0.7-4.9); Absolute Monocytes 0.3 K/uL (0.1-1.3); Absolute Neutrophil 11.8 K/uL (1.8-8.0); Basophils % 0.1 % (0-1.3); Eosinophils % 0.1 % (0-4.4); Hematocrit 31.5 % (36.0-45.0); Lymphocytes % 9.6 % (15.3-44.8); MPV 8.4 fL (7.6-11.3); Monocytes % 2.4 % (3.3-12.3); RBC Red Blood Cell Count 3.18 M/uL (3.86-4.86)
[2018-09-14 05:40] LABS: ALT/SGPT 18 U/L (12-78); AST/SGOT 17 U/L (15-37); Albumin 2.6 g/dL (3.4-5.0); Alkaline Phosphatase 55 U/L (45-117); BUN Blood Urea Nitrogen 10 mg/dL (7-18); Bicarbonate 22 mmol/L (21-32); Bilirubin Total 0.5 mg/dL (0.2-1.0); Glucose Level 87 mg/dL (74-106); Magnesium 2.2 mg/dL (1.8-2.4); Phosphorus 2.5 mg/dL (2.5-4.9); Potassium 3.9 mmol/L (3.5-5.1); Protein, Total 6.2 g/dL (6.4-8.2); Sodium Level 141 mmol/L (136-145)
[2018-09-14] MEDS ORDERED: POTASSIUM PHOS IN 0.9 % NACL 15 MMOL/250 ML BAG IV ONE (05:52)
[2018-09-14] MEDS ORDERED: INFLUENZA VACCINE (for 3y+) 0.5 ML DOSE IMVAC ONE (08:00)
--- NOTE | 2018-09-14 08:27 | P.PN ---
Subjective Date of Service: 09/14/18 Primary Care Provider: Dr. Duff Chief Complaint: Fever that pneumonia Vision is alert responsive cooperative has had abdominal discomfort CT scan of the abdomen showed right lower lobe consolidation possible aspiration pneumoniae urinary out clavicular was also follows Review of Systems General: Weakness Respiratory: Cough Physical Examination - Vital Signs Temperature: 98.7 F Blood Pressure: 88/54 Pulse: 115 Respirations: 18 Pulse Ox (%): 100 - Physical Exam General: Cooperative Neck: Supple Respiratory: Clear to auscultation bilaterally Cardiovascular: No edema, Normal S1 S2 - Studies Microbiology Data (last 24 hrs): 09/12/18 02:50 Clean Catch Urine [place] Count - Final >100,000 CFU/ML. 09/12/18 02:50 Clean Catch Urine - Final Escherichia Coli Assessment & Plan - Problems (Diagnosis) (1) Seroquel overdose Current Visit: Yes Status: Acute Plan: Patient admitted with an overdose of Seroquel his improving still a little delirious agitated continue with present Medicaid vital signs are stable and Dc Rocephin (2) Pneumonia Current Visit: Yes Status: Acute Plan: Patient is doing the age admitted falls but aspiration pneumonia kidney with Rocephin I have added Flagyl EDC Zithromax dated but there is also post if she is able gland bandage elevated white count and he had had not has not had any will seizures repeat chest x-ray Qualifiers: Pneumonia type: aspiration pneumonia Physician Review Additional Text: Impression: Intentional suicide attempt with Seroquel and Tylenol overdose complicated with alcohol abuse Seizure activity likely from sequela of overdose, provoked Acute encephalopathy secondary to Tylenol/Seroquel overdose and UTI with possible sepsis Hypokalemia Dehydration with noted hypotension Bipolar disorder Anemia, mild Left flank pain likely related to UTI Plan: Intentional suicide attempt with Seroquel and Tylenol overdose complicated with alcohol abuse: Patient remains in ICU. Poison control has given multiple recommendations with treatment plan. Patient given magnesium yesterday. Patient more alert today but still slightly confused. No more seizure activity noted. Patient remains with aspiration and seizure precaution. IV Keppra started yesterday. Will continue monitoring closely. Will decrease IV fluids. Patient had reported some left flank pain. Will check CT scan of the abdomen once more stable. This is likely from her UTI. Continue IV antibiotic therapy. Await urine culture results. Once the patient is back to her normal baseline then the patient can be further evaluated for psychiatric evaluation and transfer. Once the patient is more alert, will assess swallowing. Maybe able to start oral intake. Seizure activity likely from sequela of overdose, provoked: No more seizure- like activity. Patient now on IV Keppra. Will discuss case further with Neurology tomorrow. Will check to see if the patient will require Keppra long- term. Acute encephalopathy secondary to Tylenol/Seroquel overdose and UTI with possible sepsis: Continue as above. Continue with IV antibiotic therapy, IV fluids, and monitoring for further seizures. Will continue to update poison control. Hypokalemia: Will monitor and replace appropriately. Will monitor electrolytes. Dehydration with noted hypotension: Continue with IV fluid hydration. Bipolar disorder: Will hold medication at this time. Will monitor closely. Patient will need psychiatric evaluation once medically stable. Anemia, mild: This is likely dilutional from IV fluids. Will monitor closely. Left flank pain likely related to UTI: Will check CT scan of the abdomen and pelvis.
[2018-09-14] MEDS ORDERED: AZITHROMYCIN 250 MG TAB PO SCH (09:00)
[2018-09-14] MEDS ORDERED: CEFTRIAXONE 1 GM/NS 50 ML 1 GM/50 ML BAG IV SCH (09:00)
--- NOTE | 2018-09-14 09:04 | EKG ---
Test Date: 2018-09-13 Test Time: 15:17:58 Regional Production Manager: DARLENE MEASUREMENT RESULTS: Intervals: Rate: 112 MI: 96 QRSD: 80 QT: 322 QTc: 439 [place]: P: 59 MI: 96 QRS: 79 T: -7 INTERPRETIVE STATEMENTS: Sinus tachycardia with short MI Non specific T wave abnormality Abnormal ECG Compared to ECG 09/12/2018 20:40:04 Short MI interval now present T-wave abnormality still present Electronically Signed On 09-14-18 09:04:15 CDT by Deandre Garvey
[2018-09-14] MEDS: FOLIC ACID 1 MG, MULTIVITAMINS INJ 10 ML, THIAMINE HCL 100 MG in NA CHLORIDE 0.9% 1,000 ML IV SCH (09:40)
[2018-09-14] MEDS: CEFTRIAXONE/SWI 1gm 1 GM/10 ML SYR IVP SCH (09:41)
[2018-09-14] MEDS: METRONIDAZOLE 500mg IVPB 500 MG/100 ML BAG IV SCH ×2 (09:41→18:10)
[2018-09-14] MEDS: BENZONATATE 100 MG CAP PO PRN ×3 (09:41→22:41)
[2018-09-14] MEDS: levETIRAcetam 500 MG in NA CHLORIDE 0.9% 100 ML IV SCH (09:44)
--- NOTE | 2018-09-14 09:53 | RAD REPORT ---
EXAM DESCRIPTION: RAD - Chest Single View - 09/14/2018 9:47 am CLINICAL HISTORY: Cough, pneumonia COMPARISON: Lung base images from the September 13 CT abdomen, portable chest September 12 TECHNIQUE: AP portable chest image was obtained . FINDINGS: Dense consolidation in the right base is similar to the CT study. Medial left base consoli dation also similar to the prior day CT study. Elsewhere the lung manning are clear. Right base opacif ication does extend as high as the right hilum. Heart and vasculature are normal. No measurable pleur al effusion and no pneumothorax. No acute bony abnormality seen. No acute aortic findings suspected. IMPRESSION: Large right base consolidated pneumonia. Small to moderate medial left base consolidated pneumonia. No significant change from the prior day CT abdomen examination.
--- NOTE | 2018-09-14 15:43 | P.PN ---
Subjective Date of Service: 09/14/18 Primary Care Provider: Dr. Duff Chief Complaint: Fever that pneumonia Subjective: Improving Physical Examination - Vital Signs Temperature: 98.7 F Blood Pressure: 100/67 Pulse: 112 Respirations: 37 Pulse Ox (%): 99 - Physical Exam General: Alert, In no apparent distress, Oriented x3, Cooperative HEENT: Atraumatic Neck: Supple Respiratory: Crackles/rales (Crackles to the right base) Cardiovascular: Normal pulses, Regular rate/rhythm Gastrointestinal: Normal bowel sounds, Soft and benign, Non-distended, No masses , No rebound, No guarding Musculoskeletal: No erythema, No tenderness, No warmth Integumentary: No erythema, No warmth, No cyanosis Neurological: Normal speech, Normal strength at 5/5 x4 extr, Normal tone, Normal affect - Studies Microbiology Data (last 24 hrs): 09/12/18 02:50 Clean Catch Urine [place] Count - Final >100,000 CFU/ML. 09/12/18 02:50 Clean Catch Urine - Final Escherichia Coli Medications List Reviewed: Yes Assessment & Plan Discharge Plan: Psychiatry Plan to discharge in: 72 Hours Physician Review Additional Text: Impression: Intentional suicide attempt with Seroquel and Tylenol overdose complicated with alcohol abuse Seizure activity likely from sequela of overdose, provoked Acute encephalopathy secondary to Tylenol/Seroquel overdose and UTI-E coli with noted bilateral pneumonia suspect aspiration Hypokalemia Dehydration with noted hypotension Bipolar disorder Anemia, mild Left flank pain likely related to UTI Plan: Intentional suicide attempt with Seroquel and Tylenol overdose complicated with alcohol abuse: Patient remains in ICU. Patient improved. Patient now appears more alert. Will change Keppra to oral medication. Case discussed with Neurology. Patient will need to continue with Keppra for at least 1 month after hospitalization. Patient can follow up with neurology to further consider discontinuing medication-Keppra after that time. Will continue with antibiotic therapy for UTI/bilateral pneumonia. Case discussed with pulmonology. Once medically stable patient will require psychiatric evaluation and transfer. Anticipate patient to remain in hospital for at least 3 more days. Will continue wean to wean off oxygen and monitor closely. Seizure activity likely from sequela of overdose, provoked: No more seizure- like activity. Will transition Keppra to oral medication. Case discussed with Neurology. Patient will continue with Keppra for at least 1 more month. Patient will need follow up with neurology after that time to consider discontinuation of medication. Acute encephalopathy secondary to Tylenol/Seroquel overdose and UTI-E coli and bilateral pneumonia suspect aspiration: Continue as above. Patient much improved. Patient more alert. Encourage ambulation and oral intake. Continue with antibiotic therapy, fluids and medication. Will continue to update poison control. Hypokalemia: Will monitor and replace appropriately. Will monitor electrolytes. Dehydration with noted hypotension: Continue with IV fluid hydration. Bipolar disorder: Will hold medication at this time. Will monitor closely. Patient will need psychiatric evaluation once medically stable. Anemia, mild: This is likely dilutional from IV fluids. Will monitor closely. Left flank pain likely related to UTI-E coli: Will check CT scan of the abdomen and pelvis. I will turn the service over to Dr. Chadwick tomorrow. I will go over the plan of care with her. Time Spent Managing Pts Care (In Minutes): 55
[2018-09-14] MEDS: ONDANSETRON 4 MG/2 ML VIAL IV PRN (16:50)
[2018-09-14] MEDS: ENOXAPARIN 40 MG/0.4 ML SQ SCH (18:10)
[2018-09-14] MEDS: levETIRAcetam 500 MG TAB PO SCH (20:29)
--- NOTE | 2018-09-14 23:03 | CON ---
Reason For Consultation: Consultation called because of suicide attempt. History Of Present Illness: Ms. Martinez is a 18-year-old right-handed patient, with history of major depression and bipolar disorder, who attempted suicide by overdosing on prescription medications. She took about 20 is Seroquel, unknown amount of Tylenol and alcohol and was found unresponsive by her boyfriend. She did have a low temperature and was tachycardic and was brought into [facility]. She was found to have an acetaminophen level elevated at 37.2, hypokalemia of 2.6, and urinary tract infection and pneumonia. She was admitted to ICU for care. Today at the time of my examination, this is 2 days into the patient's admission and she has actually returned towards baseline. Mom is at the bedside. She is fully alert, oriented, follows all commands. Speaks without any issues. Moves all extremities equally well. Her workup on admission did include a head CT scan, which showed no acute ischemic or hemorrhagic change. Her most recent chest x-ray shows a large right lung base consolidated pneumonia and small to moderate left medial base consolidated pneumonia. Her urine cultures did grow an E coli, that is from 2 days ago, with sensitivities to many antibiotics. Currently, she is taking Rocephin and Flagyl intravenously. She did receive azithromycin and influenza A and B flu virion. Past Medical History: As indicated. Allergies: NO KNOWN DRUG ALLERGIES. Medications: Wellbutrin 150 mg daily, Depo-Provera 150 mg IM once every 3 months, Prilosec 40 mg daily, Seroquel 400 mg at bedtime, Tylenol with Codeine every 4 hours as needed, Bactrim Double Strength 1 twice daily. Family History: Noncontributory. Past Medical History: As indicated. Social History: Does smoking and vaping daily. Does use alcohol daily. Review of Systems: Aside from mentioned above, no recent fevers, chills, nausea, vomiting, myalgias , arthralgias, rash, headache, weight change. Physical Examination: Vital Signs: Blood pressure 100/67, pulse up to 112, respiratory rate up to about 26, temperature 98.7, oxygen saturation 100% on 2 L nasal cannula. Weight 103 pounds. Height 5 feet 4 inches, BMI 70.7. General: Ms. Martinez is resting comfortably in the ICU. HEENT: She is normocephalic, atraumatic. Sclerae are anicteric. Oropharynx is moist and pink. Neck: Supple. Chest: Clear. Heart: Regular. Abdomen: Soft. Extremities: Show no clubbing, cyanosis, or edema. Neurological: She is alert and oriented to person, place, situation. She follows commands appropriately. She has no expressive or receptive aphasias. Cranial nerve examination revealed no deficits on 2 through 12. Motor: She has 5/5 strength proximally and distally. Sensory exam intact to light touch, pinprick, temperature in the arms and legs. Reflexes 2+ in upper and lower extremities. Coordination intact in upper and lower extremities chief. Laboratory Studies: White blood cell count 13.4 with 87.8% neutrophils, hemoglobin 11.1, hematocrit 31.5, platelets 223. INR 1.18. Chemistries though show sodium 141, potassium 3.9, chloride 111, lactic acid 0.7, procalcitonin elevated to 2.97, which is consistent with systemic infection and likely sepsis , but again lactate normal at 0.7. Liver function studies are normal. Total protein low at 6.2. Urine was positive for nitrites, glucose, blood, and acetaminophen level was elevated at 37.2 with normal is between 10 and 30, as the alcohol level was 9, normal is less than 3. Salicylates was less than 1.7. Abdomen and pelvis CT scan shows no free air or obstruction. There is extensive right lower lobe and right middle lobe consolidation, that is the pneumonia. Assessment: Ms. Martinez is a 18-year-old patient with suicide attempt by overdosing on Seroquel, Tylenol, and alcohol. She is actually doing very well at this point, recovering well. She had seizures likely related to infection, Seroquel overdose, fever and hypokalemia, along with possible sepsis. Plan: 1. Continue Keppra 500 mg twice daily for at least 1 month. 2. Continue with folic acid, thiamine and MVI. 3. Continue antibiotics as indicated. 4. She should be discharged to a psychiatric facility once medically stable for continued care after her suicide attempt. 5. She may follow up in Dr. Cerda's clinic 1 month after discharge from the psychiatric facility. VAIS Voice ID: [id number] Report ID: [id number] MTDD
[2018-09-15] MEDS: METRONIDAZOLE 500mg IVPB 500 MG/100 ML BAG IV SCH ×2 (00:52→08:17)
[2018-09-15 05:24] LABS: Absolute Lymphocytes (CBC) 1.7 K/uL (0.7-4.9); Absolute Monocytes 0.4 K/uL (0.1-1.3); Absolute Neutrophil 7.9 K/uL (1.8-8.0); Basophils % 0.3 % (0-1.3); Eosinophils % 0.8 % (0-4.4); Hematocrit 28.7 % (36.0-45.0); Lymphocytes % 17.1 % (15.3-44.8); MCH 34.3 pg (27.0-35.0); MCV 98.5 fL (80-100); MPV 7.5 fL (7.6-11.3); RBC Red Blood Cell Count 2.92 M/uL (3.86-4.86)
[2018-09-15 05:37] LABS: ALT/SGPT 14 U/L (12-78); AST/SGOT 15 U/L (15-37); Albumin 2.5 g/dL (3.4-5.0); Alkaline Phosphatase 55 U/L (45-117); BUN Blood Urea Nitrogen 9 mg/dL (7-18); Bicarbonate 25 mmol/L (21-32); Bilirubin Total 0.4 mg/dL (0.2-1.0); Glucose Level 94 mg/dL (74-106); Potassium 3.5 mmol/L (3.5-5.1); Protein, Total 6.1 g/dL (6.4-8.2); Sodium Level 141 mmol/L (136-145)
[2018-09-15] MEDS ORDERED: POTASSIUM 25 MEQ EFFERV TAB PO ONE (07:39)
[2018-09-15] MEDS: levETIRAcetam 500 MG TAB PO SCH ×2 (08:16→21:04)
[2018-09-15] MEDS: CEFTRIAXONE/SWI 1gm 1 GM/10 ML SYR IVP SCH (08:17)
[2018-09-15] MEDS: BENZONATATE 100 MG CAP PO PRN ×3 (08:30→23:38)
--- NOTE | 2018-09-15 08:49 | RAD REPORT ---
EXAM DESCRIPTION: RAD - Chest Single View - 09/15/2018 6:36 am CLINICAL HISTORY: Pneumoniae Chest pain. COMPARISON: Chest Single View dated 09/14/2018; Chest Single View dated 09/12/2018; ABDOMEN 1 VIEW K UB dated 11/11/2012 FINDINGS: Portable technique limits examination quality. Airspace opacity in the right lower lobe is again noted, compatible with pneumonia. The left lung yazmin ears clear. The heart is normal in size. No displaced fractures. IMPRESSION: Right lower lobe airspace opacity is present, stable, compatible with pneumonia.
[2018-09-15] MEDS: FOLIC ACID 1 MG, MULTIVITAMINS INJ 10 ML, THIAMINE HCL 100 MG in NA CHLORIDE 0.9% 1,000 ML IV SCH (09:18)
[2018-09-15] MEDS ORDERED: NA CHLORIDE 0.9% 0 ML ONE (12:20)
[2018-09-15] MEDS ORDERED: D50W 25 GM/50 ML SYRINGE IV ONE (12:29)
--- NOTE | 2018-09-15 15:34 | P.PN ---
Subjective Date of Service: 09/15/18 Primary Care Provider: Dr. Duff Chief Complaint: Fever that pneumonia Patient seen and examined at bedside with RN. Chart reviewed. Case discussed with neurology at this time. Patient continues to be having generalized weakness at this time. Review of Systems 10-point ROS is otherwise unremarkable Physical Examination - Vital Signs Temperature: 99 F Blood Pressure: 97/63 Pulse: 88 Respirations: 29 Pulse Ox (%): 98 - Physical Exam General: Alert, In no apparent distress HEENT: Atraumatic, PERRLA, EOMI Neck: Supple, JVD not distended Respiratory: Clear to auscultation bilaterally, Normal air movement Cardiovascular: Regular rate/rhythm, Normal S1 S2 Gastrointestinal: Normal bowel sounds, No tenderness Musculoskeletal: No tenderness Integumentary: No rashes Neurological: Normal speech, Normal tone, Normal affect Lymphatics: No axilla or inguinal lymphadenopathy - Studies Medications List Reviewed: Yes Assessment And Plan - Current Problems (Diagnosis) (1) Suicide attempt by acetaminophen overdose Onset Date: 09/15/18 Current Visit: Yes Status: Acute Plan: Intential Sucide attempt -With Seraquoel, Alcohol and acetaminophen -LFT's WNL -patient stable at this time -Once medically stable patient will require psychiatric evaluation and transfer. Qualifiers: Encounter type: initial encounter Qualified Code(s): T39.1X2A - Poisoning by 4-Aminophenol derivatives, intentional self-harm, initial encounter (2) Seroquel overdose Onset Date: 09/15/18 Current Visit: Yes Status: Acute Plan: see#1 (3) Pneumonia Onset Date: 09/15/18 Current Visit: Yes Status: Acute Plan: Switched to PO Augmentin today for aspiration PNA Qualifiers: Pneumonia type: aspiration pneumonia (4) Seizure Current Visit: Yes Status: Chronic Plan: Chronic history of seizures most likely provoked with recent Seroquel overdose -neurology consulted appreciated recommendations at this time -continue Keppra for 1 month post discharge -continue monitoring closely (5) Bipolar disorder current episode depressed Onset Date: 09/15/18 Current Visit: Yes Status: Chronic Qualifiers: Current episode severity: unspecified Qualified Code(s): F31.30 - Bipolar disorder, current episode depressed, mild or moderate severity, unspecified - Plan Pending clinical improvement at this time. Discharge Plan: Home Plan to discharge in: 48 Hours - Code Status/Comfort Care Code Status Assessed: Yes Critical Care: No
[2018-09-15] MEDS: ENOXAPARIN 40 MG/0.4 ML SQ SCH (16:10)
[2018-09-15] MEDS: AMOX/K CLAV 875 MG TAB PO SCH (18:34)
[2018-09-15] MEDS: ONDANSETRON 4 MG/2 ML VIAL IV PRN (21:42)
[2018-09-16] MEDS: ONDANSETRON 4 MG/2 ML VIAL IV PRN ×3 (05:28→18:00)
[2018-09-16] MEDS: AMOX/K CLAV 875 MG TAB PO SCH ×2 (05:28→17:06)
[2018-09-16 05:49] LABS: BUN Blood Urea Nitrogen 9 mg/dL (7-18); Bicarbonate 26 mmol/L (21-32); Glucose Level 96 mg/dL (74-106); Magnesium 2.1 mg/dL (1.8-2.4); Phosphorus 4.4 mg/dL (2.5-4.9); Potassium 3.6 mmol/L (3.5-5.1); Sodium Level 139 mmol/L (136-145)
[2018-09-16] MEDS ORDERED: POTASSIUM 25 MEQ EFFERV TAB PO ONE ×2 (08:00→09:00)
[2018-09-16] MEDS: FOLIC ACID 1 MG, MULTIVITAMINS INJ 10 ML, THIAMINE HCL 100 MG in NA CHLORIDE 0.9% 1,000 ML IV SCH (08:40)
[2018-09-16] MEDS: levETIRAcetam 500 MG TAB PO SCH ×2 (08:41→21:25)
--- NOTE | 2018-09-16 12:36 | P.PN ---
Subjective Date of Service: 09/16/18 Primary Care Provider: Dr. Duff Chief Complaint: Fever that pneumonia Patient seen and examined at bedside with RN. Chart reviewed. Case discussed with neurology at this time. Patient continues to be having generalized weakness at this time. Review of Systems 10-point ROS is otherwise unremarkable Physical Examination - Vital Signs Temperature: 99.7 F Blood Pressure: 101/69 Pulse: 96 Respirations: 28 Pulse Ox (%): 95 - Physical Exam General: Alert, In no apparent distress HEENT: Atraumatic, PERRLA, EOMI Neck: Supple, JVD not distended Respiratory: Clear to auscultation bilaterally, Normal air movement Cardiovascular: Regular rate/rhythm, Normal S1 S2 Gastrointestinal: Normal bowel sounds, No tenderness Musculoskeletal: No tenderness Integumentary: No rashes Neurological: Normal speech, Normal tone, Normal affect Lymphatics: No axilla or inguinal lymphadenopathy - Studies Medications List Reviewed: Yes Assessment And Plan - Current Problems (Diagnosis) (1) Suicide attempt by acetaminophen overdose Onset Date: 09/15/18 Current Visit: Yes Status: Acute Plan: Intential Sucide attempt -With Seraquoel, Alcohol and acetaminophen -LFT's WNL -patient stable at this time -Once medically stable patient will require psychiatric evaluation and transfer. Qualifiers: Encounter type: initial encounter Qualified Code(s): T39.1X2A - Poisoning by 4-Aminophenol derivatives, intentional self-harm, initial encounter (2) Seroquel overdose Onset Date: 09/15/18 Current Visit: Yes Status: Acute Plan: see#1 (3) Pneumonia Onset Date: 09/15/18 Current Visit: Yes Status: Acute Plan: Switched to PO Augmentin for aspiration PNA Qualifiers: Pneumonia type: aspiration pneumonia (4) Seizure Current Visit: Yes Status: Chronic Plan: Chronic history of seizures most likely provoked with recent Seroquel overdose -neurology consulted appreciated recommendations at this time -continue Keppra for 1 month post discharge -continue monitoring closely (5) Bipolar disorder current episode depressed Onset Date: 09/15/18 Current Visit: Yes Status: Chronic Qualifiers: Current episode severity: unspecified Qualified Code(s): F31.30 - Bipolar disorder, current episode depressed, mild or moderate severity, unspecified - Plan Pending clinical improvement at this time. Once cleared will have psych evaluation. Patient currently not suicidal however has attempted is quite some times in the past. Patient has made a new agreement with the family member to go to the psych facility to get more help. Discharge Plan: Psychiatry Plan to discharge in: 48 Hours - Code Status/Comfort Care Code Status Assessed: Yes Critical Care: Yes
[2018-09-16] MEDS: CALCIUM CARBONATE CHEW 500MG TAB PO SCH (13:09)
[2018-09-16] MEDS ORDERED: IBUPROFEN 400 MG TAB PO ONE (16:55)
[2018-09-16] MEDS: ENOXAPARIN 40 MG/0.4 ML SQ SCH (17:06)
[2018-09-16] MEDS ORDERED: BENZONATATE 100 MG CAP PO PRN (18:10)
[2018-09-17 05:47] VITALS: BMI 18.5
[2018-09-17 05:47] LABS: BUN Blood Urea Nitrogen 9 mg/dL (7-18); Bicarbonate 28 mmol/L (21-32); Glucose Level 90 mg/dL (74-106); Magnesium 2.1 mg/dL (1.8-2.4); Phosphorus 4.2 mg/dL (2.5-4.9); Potassium 3.5 mmol/L (3.5-5.1); Sodium Level 140 mmol/L (136-145)
[2018-09-17] MEDS: AMOX/K CLAV 875 MG TAB PO SCH (06:21)
[2018-09-17 08:50] LABS: Absolute Lymphocytes (CBC) 2.1 K/uL (0.7-4.9); Absolute Monocytes 0.6 K/uL (0.1-1.3); Absolute Neutrophil 1.1 K/uL (1.8-8.0); Basophils % 0.7 % (0-1.3); Eosinophils % 4.1 % (0-4.4); Hematocrit 32.3 % (36.0-45.0); Lymphocytes % 51.8 % (15.3-44.8); MCH 33.2 pg (27.0-35.0); MCV 98.1 fL (80-100); MPV 7.4 fL (7.6-11.3); Monocytes % 15.4 % (3.3-12.3); RBC Red Blood Cell Count 3.29 M/uL (3.86-4.86)
[2018-09-17] MEDS: levETIRAcetam 500 MG TAB PO SCH (08:52)
[2018-09-17] MEDS ORDERED: THIAMINE HCL 100 MG TABLET PO SCH ×2 (09:00)
[2018-09-17] MEDS: CALCIUM CARBONATE CHEW 500MG TAB PO SCH (09:00)
[2018-09-17] MEDS ORDERED: MULTIVITAMIN TAB PO SCH (09:00)
[2018-09-17] MEDS ORDERED: FOLIC ACID 1 MG TABLET PO SCH (09:00)
[2018-09-17] MEDS ORDERED: POTASSIUM 25 MEQ EFFERV TAB PO ONE (09:00)
[2018-09-17 09:16] VITALS: O2SAT 94
[2018-09-17 12:10] VITALS: BP 105/73; TEMP 98.9
--- NOTE | 2018-09-17 15:58 | P.DS ---
Admission Date: 09/12/18 Discharge Date: 09/17/18 Primary Care Provider: Dr. Duff Disposition: TRANSFR TO OTHER-PSY/CD/REHAB Discharge Condition: GOOD Reason for Admission: Fever that pneumonia - Problems (1) Suicide attempt by acetaminophen overdose Onset Date: 09/15/18 Status: Acute Qualifiers: Encounter type: initial encounter Qualified Code(s): T39.1X2A - Poisoning by 4-Aminophenol derivatives, intentional self-harm, initial encounter (2) Seroquel overdose Onset Date: 09/15/18 Status: Acute (3) Pneumonia Onset Date: 09/15/18 Status: Acute Qualifiers: Pneumonia type: aspiration pneumonia (4) Seizure Status: Chronic (5) Bipolar disorder current episode depressed Onset Date: 09/15/18 Status: Chronic Qualifiers: Current episode severity: unspecified Qualified Code(s): F31.30 - Bipolar disorder, current episode depressed, mild or moderate severity, unspecified Brief History of Present Illness: Ms Martinez is 18-year-old woman with history of major depressive syndrome in context of bipolar disorder, with previous suicidal ideation episodes, was found by her boyfriend unresponsive with a suicide note around 1:00 a.m. Apparently she took about 20 to pills of Seroquel, unknown amount of Tylenol, mixed with Alcohol. At arrival the patient was unresponsive, tachycardic with low template. Lab work remarkable for hypokalemia 2.6, acetaminophen level 37.2 , 2 hr later monitor on revealed trending down, for level is 35.7. UA abnormal consistent with UTI. EKG shows sinus tach with short [place] interval. Hospital Course: Overall during the hospital stay patient remained stable The patient was initially admitted to the hospital for intentional overdose for acetaminophen and Seroquel. Along with alcohol. Patient was admitted to the ICU. Patient had received Mucomyst here in the hospital and was put on cardiac tele along with IV fluids. Patient remained unremarkable here in the hospital without any adverse reaction from the overdose. Losing control was consulted as well here in the hospital. Patient also had a urine culture done here in the hospital which was consistent with urinary tract infection and thus patient was started on IV antibiotics which were switched over to p.o. Augmentin here in the hospital. When patient came to the hospital after the overdose was found to have seizures most likely secondary to Seroquel overdose. Patient was started on Keppra. Had neurology consulted here and had MRI CT scan and other lab work done. All the lab work and CT scan MRA were within normal limits. Patient was started on Keppra 500 mg b.i.d. and was asked to continue for 1 month post discharge. Patient was medically cleared hepatic evaluation done and was transferred to inpatient psych for treatment of her bipolar disorder as this has been her 3rd to 4th attempt for suicide Vital Signs/Physical Exam: Temp Pulse Resp BP Pulse Ox 98.9 F 71 23 H 105/73 97 09/17/18 11:00 09/17/18 11:00 09/17/18 11:00 09/17/18 10:00 09/17/18 11:00 General: Alert, In no apparent distress HEENT: Atraumatic, PERRLA, EOMI Neck: Supple, JVD not distended Respiratory: Clear to auscultation bilaterally, Normal air movement Cardiovascular: Regular rate/rhythm, Normal S1 S2 Gastrointestinal: Normal bowel sounds, No tenderness Musculoskeletal: No tenderness Integumentary: No rashes Neurological: Normal speech, Normal tone, Normal affect Lymphatics: No axilla or inguinal lymphadenopathy Laboratory Data at Discharge: WBC 4.1 K/uL (4.3-10.9) L D 09/17/18 08:36 Hgb 10.9 g/dL (12.0-15.0) L 09/17/18 08:36 Hct 32.3 % (36.0-45.0) L 09/17/18 08:36 Plt Count 291 K/uL (152-406) D 09/17/18 08:36 PT 14.0 SECONDS (9.5-12.5) H 09/12/18 02:00 INR 1.18 09/12/18 02:00 Sodium 140 mmol/L (136-145) 09/17/18 05:06 Potassium 3.5 mmol/L (3.5-5.1) 09/17/18 05:06 BUN 9 mg/dL (7-18) 09/17/18 05:06 Creatinine 0.50 mg/dL (0.55-1.3) L 09/17/18 05:06 Glucose 90 mg/dL (74-106) 09/17/18 05:06 Phosphorus 4.2 mg/dL (2.5-4.9) 09/17/18 05:06 Magnesium 2.1 mg/dL (1.8-2.4) 09/17/18 05:06 Total Bilirubin 0.4 mg/dL (0.2-1.0) 09/15/18 04:05 AST 15 U/L (15-37) 09/15/18 04:05 ALT 14 U/L (12-78) 09/15/18 04:05 Alkaline Phosphatase 55 U/L (45-117) 09/15/18 04:05 Home Medications: Bupropion HCl [Wellbutrin Xl] 300 mg PO DAILY 09/12/18 Cyproheptadine HCl 4 mg PO DAILY 09/12/18 Medroxyprogester [Depo Provera*] 150 mg IM SEECOM 09/12/18 Quetiapine Fumarate [Seroquel] 400 mg PO DAILY 09/12/18 Amox/Clavulanate [Augmentin 875-125 Tab*] 875 mg PO 0500,1700 #28 tab 09/17/18 levETIRAcetam [Keppra*] 500 mg PO BID #60 tab 09/17/18 New Medications: Amox/Clavulanate [Augmentin 875-125 Tab*] 875 mg PO 0500,1700 #28 tab levETIRAcetam [Keppra*] 500 mg PO BID #60 tab Diet: Regular Activity: Ad lora Followup: Austyn Cerda MD [ASSOCIATE-ACTIVE - CAN ADMIT] -
== END 2018-09-17 12:15 | DRG 917 ==
LOC: ER 01:53 → ERHOLD 03:46 → 3RD-ICU 05:39
PROVIDERS: ADMIT Internal Medicine; ATTEND Family Medicine
DX: T39.1X2A Poisoning by 4-Aminophenol derivatives, intentional self-harm, initial encounter (principal); G92 Toxic encephalopathy; J69.0 Pneumonitis due to inhalation of food and vomit; N39.0 Urinary tract infection, site not specified; F31.30 Bipolar disorder, current episode depressed, mild or moderate severity, unspecified; T43.592A Poisoning by other antipsychotics and neuroleptics, intentional self-harm, initial encounter; T51.92XA Toxic effect of unspecified alcohol, intentional self-harm, initial encounter; Y92.019 Unspecified place in single-family (private) house as the place of occurrence of the external cause; E87.6 Hypokalemia; F17.290 Nicotine dependence, other tobacco product, uncomplicated; E86.0 Dehydration; I95.9 Hypotension, unspecified; D64.9 Anemia, unspecified; B96.20 Unspecified Escherichia coli [E. coli] as the cause of diseases classified elsewhere; R56.9 Unspecified convulsions
CPT/HCPCS: 36415; 70450; 71045; 74177; 80048; 80053; 80076; 80177; 80307; 80320; 80329; 81003; 81025; 82805; 83605; 83735; 83880; 84100; 84145; 84484; 85025; 85610; 87040; 87077; 87086; 87088; 87186; 93005; 94760; 97163; 99285; G0008; J0696; J1650; J1953; J2405; J3411; J3475; J7030; Q2035; Q9967

== ENCOUNTER 2019-02-20 16:42 | Emergency (ER) | payer BC ==
[2019-02-20 17:18] LABS: Absolute Lymphocytes (CBC) 1.5 K/uL (0.7-4.9); Absolute Monocytes 0.5 K/uL (0.1-1.3); Absolute Neutrophil 5.6 K/uL (1.8-8.0); Basophils % 0.4 % (0-1.3); Eosinophils % 0.5 % (0-4.4); Hematocrit 40.9 % (36.0-45.0); Lymphocytes % 19.2 % (15.3-44.8); MPV 7.2 fL (7.6-11.3); RBC Red Blood Cell Count 4.14 M/uL (3.86-4.86)
[2019-02-20 17:31] LABS: Barbiturates NEGATIVE (NEGATIVE); Benzodiazepines NEGATIVE (NEGATIVE); Cocaine NEGATIVE (NEGATIVE); METHAMPHETAM NEGATIVE (NEGATIVE); Methadone NEGATIVE (NEGATIVE); Opiates NEGATIVE (NEGATIVE); Phencyclidine NEGATIVE (NEGATIVE); THC Cannibis NEGATIVE (NEGATIVE)
[2019-02-20 17:32] LABS: BUN Blood Urea Nitrogen 14 mg/dL (7-18); Bicarbonate 29 mmol/L (21-32); Glucose Level 53 mg/dL (74-106); Potassium 3.3 mmol/L (3.5-5.1); Sodium Level 143 mmol/L (136-145)
[2019-02-20 17:39] LABS: Urine Blood 2+ (NEG); Urine Glucose NEGATIVE (NEG); Urine Protein TRACE (NEG); Urine Specific Gravity 1.025 (1.005-1.030)
--- NOTE | 2019-02-20 18:04 | ER ---
Nurse's Notes [facility] Name: Celeste Martinez Age: 18 yrs Sex: Female : 2000 Arrival Date: 02/20/2019 Time: 16:47 Bed 17 Private MD: Diagnosis: Irritability and anger Presentation: 02/20 16:48 Presenting complaint: EMS states: mother called [place] [employer] because pt had a belt around the em neck and mother tried to removed it, mild redness and residue walker noted on around the throat, pt also grabbed a knife initially but then dropped it, on scene pt was hyperventilating 30 RR, HR 140, BP 145/90, pt currently denies being SI/HI, VS stable on arrival. Transition of care: patient was not received from another setting of care. Onset of symptoms was February 20, 2019. Risk Assessment: Do you want to hurt yourself or someone else? Patient reports no desire to harm self or others. Initial Sepsis Screen: Does the patient meet any 2 criteria? Does the patient have a suspected source of infection? No. Patient's initial sepsis screen is negative. 16:48 Method Of Arrival: EMS: [facility] em 16:48 Care prior to arrival: None. em 17:06 Acuity: FREDDY 2 iw Triage Assessment: 16:48 General: Appears in no apparent distress. comfortable, slender, well developed, well em nourished, Behavior is calm, cooperative. Pain: Denies pain. 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 - Social history:: Smoking status: Patient/guardian denies using tobacco, Patient/guardian denies using alcohol, street drugs. - Ebola Screening: : Patient negative for fever greater than or equal to 101.5 degrees Fahrenheit, and additional compatible Ebola Virus Disease symptoms Patient denies exposure to infectious person Patient denies travel to an Ebola-affected area in the 21 days before illness onset No symptoms or risks identified at this time. Screenin:02 Abuse screen: Abuse screen: Denies threats or abuse. Nutritional screening: No deficits em noted. Tuberculosis screening: No symptoms or risk factors identified. Fall Risk None identified. Assessment: 16:48 General: Appears in no apparent distress. comfortable, Behavior is calm, cooperative. em Pain: Denies pain. Neuro: Level of Consciousness is awake, alert, obeys commands, Oriented to person, place, time, situation. Cardiovascular: Capillary refill < 3 seconds Patient's skin is warm and dry. Respiratory: Airway is patent Respiratory effort is even, unlabored, Respiratory pattern is regular, symmetrical. GI: Abdomen is flat. : No signs and/or symptoms were reported regarding the genitourinary system. EENT: No signs and/or symptoms were reported regarding the EENT system. Derm: Skin is intact, is healthy with good turgor, Skin is pink, warm \T\ dry. 17:00 Reassessment: Patient appears in no apparent distress at this time. I agree with above iw assessment by Bhavin Fernandes LVN. 17:47 Reassessment: Patient appears in no apparent distress at this time. Patient and/or em family updated on plan of care and expected duration. Pain level reassessed. Patient is alert, oriented x 3, equal unlabored respirations, skin warm/dry/pink. 18:30 Reassessment: Patient appears in no apparent distress at this time. Patient and/or em family updated on plan of care and expected duration. Pain level reassessed. Patient is alert, oriented x 3, equal unlabored respirations, skin warm/dry/pink. pt denies SI/HI at this time, pt will be discharged. Psych: 16:48 Subjective: Patient's mood is sad, Delusions are denied, Hallucinations are denied. em Objective: Patient is cooperative, Speech is normal, Affect is appropriate. Interventions: Removed personal items and placed in bag. Patient placed in hospital gown. Searched person for dangerous items. Urine collected and sent for urine drug test. Suicide Risk Assessment: Sad Person Scale: Sex of patient: Female: Score 0 points. Age of patient: Score 1 point if patient 15-34. Depression: Score 1 point if signs of depression are present. Previous Attempt: Score 1 point if patient has previously attempted suicide. Substance Abuse: Score 0 point if patient does not abuse alcohol or drugs. Rational Thinking: Score 0 point if patient has rational thinking. Social Support: Score 0 if social support is present/available. Organized Plan: Score 0 if patient did not have an organized plan in place. Relationship: Score 0 point if patient has a spouse or domestic partner. Chronic Sickness: Score 0 point if patient does not have a chronic illness, debilitating, or severe disorder. Safety Checks: Personal items have been removed. Door is open. Visitors are present. Pt denies substance abuse. Commitment: Patient will be a voluntary commitment. Vital Signs: 16:48 BP 105 / 77; Pulse 103; Resp 22; Temp 98.1(O); Pulse Ox 100% ; Weight 47.63 kg; Height em 5 ft. 1 in. (154.94 cm); Pain 0/10; 18:16 BP 105 / 72; Pulse 92; Resp 16; Temp 98.6(O); Pulse Ox 100% on R/A; mh5 16:48 Body Mass Index 19.84 (47.63 kg, 154.94 cm) ED Course: 16:45 Safety checks: Items removed: yes. Door open/sign placed on door: yes. Family/friend mh5 present: no. Sitter present: Yes. 16:47 Patient arrived in ED. em 16:47 Bhavin Fernandes LVN is Primary Nurse. em 16:48 Osmel Lewis PA is PHCP. jr8 16:48 Holden Reyna MD is Attending Physician. jr8 16:48 Arm band placed on. em 17:00 Safety checks: Items removed: yes. Door open/sign placed on door: yes. Family/friend mh5 present: no. Sitter present: Yes. 17:02 Patient has correct armband on for positive identification. Bed in low position. em 17:06 Triage completed. iw 17:15 Safety checks: Items removed: yes. Door open/sign placed on door: yes. Family/friend mh5 present: no. Sitter present: Yes. 17:18 Placed in gown. Warm blanket given. mh5 17:18 Initial lab(s) drawn, by me, sent to lab. Urine collected: clean catch specimen, mh5 cloudy. Inserted saline lock: 22 gauge in left antecubital area, using aseptic technique. Blood collected. 17:19 Basic Metabolic Panel Sent. 5 17:19 CBC with Diff Sent. 5 17:20 ETOH Level Sent. 5 17:20 Urine Drug Screen Sent. 5 17:27 Urine Drug Screen Sent. [facility] 17:30 Safety checks: Items removed: yes. Door open/sign placed on door: yes. Family/friend mh5 present: no. Sitter present: Yes. 17:45 Safety checks: Items removed: yes. Door open/sign placed on door: yes. Family/friend mh5 present: no. Sitter present: Yes. 17:56 Diet: Patient given a regular meal tray. [facility] 18:00 Safety checks: Items removed: yes. Door open/sign placed on door: yes. Family/friend mh5 present: no. Sitter present: Yes. 18:15 Safety checks: Items removed: yes. Door open/sign placed on door: yes. Family/friend mh5 present: no. Sitter present: Yes. 18:39 No provider procedures requiring assistance completed. IV discontinued, intact, em bleeding controlled, No redness/swelling at site. Pressure dressing applied. Administered Medications: No medications were administered Outcome: 18:03 Discharge ordered by . anne 18:39 Discharged to home ambulatory, with family. em 18:39 Condition: stable 18:39 Discharge instructions given to patient, family, Instructed on discharge instructions, follow up and referral plans. Demonstrated understanding of instructions, follow-up care. 18:41 Patient left the ED. em Signatures: Bhavin Fernandes, LEONARDO MACHUCAN em Dottie Weir RN RN Osmel Herrera PA PA Gwen Pickens [facility]
--- NOTE | 2019-02-20 18:04 | EDPHYS ---
[facility] Name: Celeste Martinez Age: 18 yrs Sex: Female : 2000 Arrival Date: 02/20/2019 Time: 16:47 Bed 17 Private MD: ED Physician Holden Reyna HPI: 02/20 16:55 This 18 yrs old Female presents to ER via Unassigned with complaints of jr8 Suicidal Ideation . 16:55 The patient presents to the emergency department with depression, manic episode. Onset: jr8 The symptoms/episode began/occurred acutely, today. Past psychiatric history: Prior diagnosis: bipolar disorder, depression, Psychiatric medications include: Remeron, Seroquel , the patient has had a prior suicide gesture, where the patient took pills/meds. Associated signs and symptoms: The patient has no apparent associated signs or symptoms. Severity of symptoms: At their worst the symptoms were moderate in the emergency department the symptoms have improved mildly. The patient has experienced a previous episode. The patient has not recently seen a physician. Patient stated that she has been in a manic episode lately. Had heated argument with significant other today. Stated to him that "you will never see me again". Had been holding belt around her neck. Denies SI currently and without plan. Stated that she was just very upset at the time. 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 - Social history:: Smoking status: Patient/guardian denies using tobacco, Patient/guardian denies using alcohol, street drugs. - Ebola Screening: : Patient negative for fever greater than or equal to 101.5 degrees Fahrenheit, and additional compatible Ebola Virus Disease symptoms Patient denies exposure to infectious person Patient denies travel to an Ebola-affected area in the 21 days before illness onset No symptoms or risks identified at this time. ROS: 16:55 Eyes: Negative for injury, pain, redness, and discharge, ENT: Negative for injury, jr8 pain, and discharge, Neck: Negative for injury, pain, and swelling, Cardiovascular: Negative for chest pain, palpitations, and edema, Respiratory: Negative for shortness of breath, cough, wheezing, and pleuritic chest pain, Abdomen/GI: Negative for abdominal pain, nausea, vomiting, diarrhea, and constipation, Back: Negative for injury and pain, MS/Extremity: Negative for injury and deformity, Skin: Negative for injury, rash, and discoloration, Neuro: Negative for headache, weakness, numbness, tingling, and seizure. 16:55 Psych: Positive for depression, suicidal ideation. Exam: 16:55 Eyes: Pupils equal round and reactive to light, extra-ocular motions intact. Lids and jr8 lashes normal. Conjunctiva and sclera are non-icteric and not injected. Cornea within normal limits. Periorbital areas with no swelling, redness, or edema. ENT: Nares patent. No nasal discharge, no septal abnormalities noted. Tympanic membranes are normal and external auditory canals are clear. Oropharynx with no redness, swelling, or masses, exudates, or evidence of obstruction, uvula midline. Mucous membranes moist. Neck: Trachea midline, no thyromegaly or masses palpated, and no cervical lymphadenopathy. Supple, full range of motion without nuchal rigidity, or vertebral point tenderness. No Meningismus. Cardiovascular: Regular rate and rhythm with a normal S1 and S2. No gallops, murmurs, or rubs. Normal PMI, no JVD. No pulse deficits. Respiratory: Lungs have equal breath sounds bilaterally, clear to auscultation and percussion. No rales, rhonchi or wheezes noted. No increased work of breathing, no retractions or nasal flaring. Abdomen/GI: Soft, non-tender, with normal bowel sounds. No distension or tympany. No guarding or rebound. No evidence of tenderness throughout. Back: No spinal tenderness. No costovertebral tenderness. Full range of motion. Skin: Warm, dry with normal turgor. Normal color with no rashes, no lesions, and no evidence of cellulitis. MS/ Extremity: Pulses equal, no cyanosis. Neurovascular intact. Full, normal range of motion. Neuro: Awake and alert, GCS 15, oriented to person, place, time, and situation. Cranial nerves II-XII grossly intact. Motor strength 5/5 in all extremities. Sensory grossly intact. Cerebellar exam normal. Normal gait. 16:55 Psych: Behavior/mood is cooperative, depressed, Affect is calm, Oriented to person, place, time, Patient has no thoughts/intents to harm self or others. Judgement / Insight is normal. Memory is normal. Delusions/hallucinations are not present. Vital Signs: 16:48 BP 105 / 77; Pulse 103; Resp 22; Temp 98.1(O); Pulse Ox 100% ; Weight 47.63 kg; Height em 5 ft. 1 in. (154.94 cm); Pain 0/10; 18:16 BP 105 / 72; Pulse 92; Resp 16; Temp 98.6(O); Pulse Ox 100% on R/A; mh5 16:48 Body Mass Index 19.84 (47.63 kg, 154.94 cm) em MDM: 16:53 Patient medically screened. [facility] 18:01 Data reviewed: vital signs, nurses notes, lab test result(s), and as a result, I will [facility] discharge patient. Data interpreted: Pulse oximetry: on room air is 100 %. Interpretation: normal. Counseling: I had a detailed discussion with the patient and/or guardian regarding: the historical points, exam findings, and any diagnostic results supporting the discharge/admit diagnosis, lab results, the need for outpatient follow up, a psychiatrist, to return to the emergency department if symptoms worsen or persist or if there are any questions or concerns that arise at home. Response to treatment: the patient's symptoms have resolved after treatment. ED course: Reevaluated patient. Patient calm and cooperative. Does not feel suicidal. Stated that she feels much better. Had time to think and calm down. Patient never had plan. Voluntarily came for evaluation. Will f/u with psychiatrist . 02/20 16:54 Order name: Basic Metabolic Panel; Complete Time: 17:59 02/20 16:54 Order name: CBC with Diff; Complete Time: 17:59 02/20 16:54 Order name: ETOH Level; Complete Time: 17:59 02/20 16:54 Order name: Urine Drug Screen; Complete Time: 17:59 02/20 17:24 Order name: Urine Dipstick--Ancillary (enter results); Complete Time: 17:59 02/20 17:24 Order name: Urine --Ancillary (enter results); Complete Time: 17:59 02/20 16:54 Order name: Urine Test (obtain specimen); Complete Time: 17:06 02/20 16:54 Order name: IV Saline Lock; Complete Time: 17:06 02/20 16:54 Order name: Labs collected and sent; Complete Time: 17:07 02/20 16:54 Order name: Urine Dipstick-Ancillary (obtain specimen); Complete Time: 17:06 02/20 17:19 Order name: Diet Regular; Complete Time: 17:19 [facility] Administered Medications: No medications were administered Disposition: 02/21 07:06 Co-signature as Attending Physician, Holden Reyna MD. rn Disposition: 02/20/19 18:03 Discharged to Home. Impression: Irritability and anger. - Condition is Stable. - Discharge Instructions: Tips for Managing Your Anger. - Medication Reconciliation Form, Thank You Letter, Antibiotic Education, Prescription Opioid Use form. - Follow up: Private Physician; When: 2 - 3 days; Reason: Recheck today's complaints, Continuance of care, Re-evaluation by your physician. - Problem is new. - Symptoms have improved. Signatures: Dispatcher [employer] EDBhavin Fierro, KILN BURNER HELPER KILN BURNER HELPER Holden Maier MD MD rn Roszak, Josh, PA PA jr8 Corrections: (The following items were deleted from the chart) 02/20 18:41 18:03 02/20/2019 18:03 Discharged to Home. Impression: Irritability and anger. em Condition is Stable. Forms are Medication Reconciliation Form, Thank You Letter, Antibiotic Education, Prescription Opioid Use. Follow up: Private Physician; When: 2 - 3 days; Reason: Recheck today's complaints, Continuance of care, Re-evaluation by your physician. Problem is new. Symptoms have improved. jr8
[2019-02-20 18:56] VITALS: BP 105/72; TEMP 98.6; O2SAT 100
== END 2019-02-20 18:41 | disposition home or self-care (01) ==
LOC: ER 16:42
DX: R45.4 Irritability and anger (principal); F32.9 Major depressive disorder, single episode, unspecified; F31.9 Bipolar disorder, unspecified
CPT/HCPCS: 36415; 80048; 80307; 80320; 81003; 81025; 85025; 99284

== ENCOUNTER 2021-08-23 08:44 | Day surgery (SDC) | payer BC ==
[2021-08-23] MEDS ORDERED: LIDOCAINE 2% MPF 5 ML VIAL ONE (09:00)
[2021-08-23] MEDS ORDERED: ROCURONIUM 50 MG/5 ML VIAL IV ONE (09:00)
[2021-08-23] MEDS ORDERED: FENTANYL CITR 100 MCG/2 ML ONE (09:00)
[2021-08-23] MEDS ORDERED: dexAMETHasone 10 MG/ML VIAL ONE (09:00)
[2021-08-23] MEDS ORDERED: propofoL 200 MG/20 ML VIAL IV ONE (09:00)
[2021-08-23] MEDS ORDERED: MIDAZOLAM HCL 2 MG/2 ML INJ ONE ×2 (09:01→09:09)
[2021-08-23] MEDS ORDERED: KETOROLAC 30 MG/ML INJ ONE (09:01)
[2021-08-23] MEDS ORDERED: ONDANSETRON 4 MG/2 ML VIAL ONE (09:02)
[2021-08-23] MEDS ORDERED: Ringers Lactate 1,000 ML IV ONE (09:28)
[2021-08-23] MEDS ORDERED: SCOPOLAMINE HYDROBROMIDE PATCH TD ONE (09:28)
[2021-08-23] MEDS ORDERED: NA CHLORIDE 0.9% 1,000 ML ONE (10:26)
[2021-08-23] MEDS ORDERED: BUPIVACAINE 0.25% PF 30 ML VIAL ONE (10:26)
[2021-08-23] MEDS ORDERED: METHYLENE BLUE 0.5% 10 ML AMP ONE (10:28)
[2021-08-23] MEDS ORDERED: CEFAZOLIN SODIUM 1 GM/VIAL ONE (11:29)
[2021-08-23] MEDS ORDERED: NS 0.9% VIAL 10 ML ONE (11:29)
[2021-08-23] MEDS ORDERED: GLYCOPYRROLATE 0.2 MG/ML SYR ONE ×2 (12:04→13:49)
[2021-08-23] MEDS ORDERED: HYDROCODONE/APAP 5/325 MG TAB PO PRN (13:45)
[2021-08-23] MEDS ORDERED: MEPERIDINE HCL 25 MG/ML SYR IM PRN (13:45)
[2021-08-23] MEDS ORDERED: PROMETHAZINE INJ 25 MG/ML AMP IV PRN (13:45)
[2021-08-23] MEDS ORDERED: IBUPROFEN 200 MG TAB PO PRN (13:45)
[2021-08-23] MEDS: MEPERIDINE HCL 25 MG/ML SYR ONE ×2 (13:45→13:50)
[2021-08-23] MEDS ORDERED: NEOSTIGMINE 1 MG/ML -5 ML ONE (13:49)
[2021-08-23 13:52] VITALS: O2SAT 100
--- NOTE | 2021-08-23 13:52 | P.BOP ---
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
[2021-08-23] MEDS ORDERED: HYDROCODONE/APAP 5/325 MG TAB ONE (15:05)
[2021-08-23 15:43] VITALS: BP 109/65; TEMP 97.4
[2021-08-23] MEDS ORDERED: CYPROHEPTADINE HCL 4 MG PO SCH (21:00)
[2021-08-24] MEDS ORDERED: HOME MED 1 EA UNK (Escitalopram Oxalate [Lexapro] 10 MG Tablet) PO SCH (09:00)
--- NOTE | 2021-08-30 16:35 | OP ---
Date of Procedure: 08/23/2021 Surgeon: Dory Gray MD Head Of Marketing: Ann Graham. Preoperative Diagnoses: Menorrhagia (AUB-O), pelvic pain, deep dyspareunia. Postoperative Diagnoses: Menorrhagia (AUB-O), pelvic pain, deep dyspareunia and stage III endometrio sis of the pelvic peritoneum, right ovary cul-de-sac, occlusion of the right tube. Procedures Performed: 1.Diagnostic hysteroscopy. 2.Diagnostic laparoscopy, extensive endometriosis excision, bilateral ureterolysis, uterine suspensi on, and chromotubation. Anesthesia: General endotracheal. Specimens: Bilateral lateral wall uterosacral endometriosis, posterior cul-de-sac endometriosis, and right ovary. Findings: Bilateral pelvic sidewalls with endometriosis, periureteric fibrosis, the right ovary with endometriosis, cul-de-sac posterior vaginal wall. On chromotubation, the left tube was patent; hernadez prudence, the right tube did not fill or spill, but there was no evident hydrosalpinx and therefore the tu be was preserved. Plan is to perform a 3 or 6-month followup postop hysterosalpingogram. Complications: No complications. Drains: No drains. Condition: Stable. Estimated Blood Loss: Minimal. Indications: The patient is a 21-year-old young female with all the complaints. No prior diagnosis of endometriosis. Due to her severe pain, she opted to proceed with surgical management and so she w as consented and brought to the OR. Uterine suspension for all the procedure as dictated above. Keasbey rine suspension. There was extensive endometriosis performed. Excision performed that the adhesions would be prevented by the suspension and also prevent deep dyspareunia due to the retroflexed positi on of the uterus. Procedure In Detail: After informed consent was verified, she was taken back to the OR, placed in serrano pine fashion on the operating table. General anesthesia was given. She was placed in dorsal lithoto my position using Jaison stirrups. Positioning was checked. SCDs were started. Time-out was done. Abdomen, vulva, vagina, and perineum were prepped and draped in a sterile fashion. Speculum placed to expose the cervix. Anterior lip grasped with 2 Allis clamps. Diagnostic SlimLine hysteroscope was used to enter the cervical canal and traversed into the uterine cavity. There was no distortion or anomaly detected. Both tubal ostia were well visualized. No intracavitary masses w ere seen or irregular endometrium. The scope was removed. Diagnostic uterine manipulator was introd uced into the uterine cavity and fixed in place with cervical occluder opposed to the cervix. Alexis was inserted and attached to a drainage bag. This area was covered. A 1 cm infraumbilical incision was made with a scalpel. Using the open laparoscopy technique, fascia was incised, tagged with 0 Vicryl sutures and peritoneum entered bluntly. S-retractors were placed. Luis introduced in the peritoneal cavity after insufflated adequately. She did have a bradycardi c response from rapid insufflation, so we had to hold the pressures down, reverse her from Trendelenb urg and once her bradycardia from the 30s and the back and 50s, we re-insufflated the patient slowly and she remained stable during the rest of the case without any cardiovascular events or any hemodyna mics changes. After visualizing the upper surface of the peritoneum, no evidence of any endometrial implants in the upper peritoneal surfaces, omentum, in the right lower quadrant and left lower quadrant. Then, pelv ic peritoneum was examined. Anterior cul-de-sac unremarkable. Posterior cul-de-sac with all endomet riosis in the lateral schwarz along the uterosacral ligaments in the posterior cul-de-sac, right on the distal posterior vaginal wall before the reflection onto the rectum of the peritoneum onto the rectu m. There were implants medial to the uterosacral ligaments as well as lateral and on either side of the ureter lateral and medial, so systematically planned to perform endometriosis excision followed b y chromotubation and then uterine suspension. Five suprapubic left lower quadrant and right lower quadrant ports were placed under direct vision. Then, epiploicae of the colon tagged with 3-0 Monocryl and brought out with Marcus-Stan needle th rough the left upper quadrant for retraction. The right lateral wall was first dissected with making a parallel incision on the peritoneum with sha rp scissors and with the LigaSure lateral and superior to the ureter at least 5 cm incision was made. Then, dissection was performed medially and posteriorly to dissect the ureter and from th e medial leaf of the broad ligament where there were several implants present between the ureter and the uterosacral. Once I got to these implants, the ureter was dissected all the way to the ureteric tunnel and away from the medial leaf as well as from the lateral aspect and superior aspect somewhat so that I could visualize the ureter. The peritoneal implants from the lateral aspect were also pulled over as the peritoneum was being exc ised. Then, implants were all excised. Once I came to the medial aspect of the uterosacral, the imp lants were excised by extending the peritoneal incision superiorly around, being careful with the sylvain rine artery, and this was dissected and kept safe. Then coming down over the uterosacral, this entir e tissue was excised and handed out as a single large specimen. There was good peristalsis of the ureter and there was excellent blood supply also intact. Attention was directed to the left lateral wall. Similar dissection was performed by opening up a 6- 7 cm incision lateral and superior to the ureter on the left side. Then, the implants were all excis ed going all the way crossing of the uterine artery with the ureter so the peritoneal implants were d issected away from the uterine artery and once all the implants and the peritoneum were stripped away , then the ureteric dissection was performed from the lateral aspect, it to visualize it f rom the medial aspect, from the medial leaf of the broad ligament, opening up the periureteric vessel s and tissue, keeping it preserved with the ureter, moving it away. There was one area where there w ere dense adhesions coming from the endometriotic implants going to the underlying tissues due to the deep infiltrating endometriosis. This was just at the level of the entry of the ureter into the ure teric tunnel. So, once uterine and internal iliac and ureter were dissected and away from the medial aspect, all the implants and the underlying scar were excised completely and stripped off medially towards the uterosacral ligament, and all these implants were taken out in 1 large strip. T hen, I was left with the implant on the medial aspect of the uterosacral ligament on the left side an d then the posterior cul-de-sac, posterior vaginal wall implants. An incision was made in the left p ararectal space. Dissection was performed going onto the posterior wall, then across dissecting the rectum away from the peritoneum and the normal peritoneal area without the implants across the rectum , preserving the rectum, using the EEA Sizer, deviating the rectum posteriorly as I was dissecting th e peritoneum away from it. Then, right pararectal space was entered. Then, the peritoneum was incis ed all the way around the implants onto the posterior vaginal wall on this side. Then, the peritoneu m was stripped off the rectosigmoid onto the posterior vaginal wall and the rest of the excision was done with the help of the monopolar Storz needle on the vaginal wall. Did not penetrate the entire v aginal wall, so did not gain entry into the vaginal canal during this dissection. Once all implants were stripped off, this was handed off for permanent pathology. Then, attention was directed to the right ovary where there was an endometriotic implant. This was excised with the help of the monopola r needle and removed completely as this was ovarian surface implant starting to have infiltration. A ll these were removed. There was hemostasis secured with the help of the bipolar. No evidence of an y trauma to the rectosigmoid or the ureters. Both ovaries were intact. Chromotubation was performed . Dilute methylene blue was pushed through. There was fill and spill on the left side. On the right s marcial, there was no fill or spill, could be from the spasm of the right tube. No glucagon available. So, we did not do any further testing since this did not appear to be hydrosalpinx. There was no ind ication to remove it. We will test it postoperative and the patient will be counseled extensively on it. After thorough irrigation and suction were performed, then all the trocars were removed under direct vision. The retention suture on the epiploicae was removed. There was good hemostasis. Injection a t the skin and fascia was done with a 0.25% Marcaine after desufflating completely. The fascia at th e umbilicus was closed with the 0 Vicryl tag sutures, tied to each other, subcutaneous 4-0 Vicryl for closure on all incisions. Manipulator and Alexis were removed. Instrument, needle, and sponge count s were correct at the end of the case. The patient tolerated the procedure well. She will follow up with me in 1 week. ADRYAN/VIK Voice ID: [id number] Report ID: [id number]
== END 2021-08-23 15:19 | disposition home or self-care (01) ==
LOC: OR 08:44
PROVIDERS: ATTEND Obstetrics & Gynecology
PROC: 0DBW4ZZ Excision of Peritoneum, Percutaneous Endoscopic Approach (ICD-10-PCS; 2021-08-23)
PROC: 0US94ZZ Reposition Uterus, Percutaneous Endoscopic Approach (ICD-10-PCS; 2021-08-23)
PROC: 3E1P88X Irrigation of Female Reproductive using Irrigating Substance, Via Natural or Artificial Opening Endoscopic, Diagnostic (ICD-10-PCS; 2021-08-23)
PROC: 0UJD8ZZ Inspection of Uterus and Cervix, Via Natural or Artificial Opening Endoscopic (ICD-10-PCS; principal; 2021-08-23 10:45)
DX: N94.12 Deep dyspareunia (principal); N92.6 Irregular menstruation, unspecified; R10.2 Pelvic and perineal pain; D50.9 Iron deficiency anemia, unspecified; F33.1 Major depressive disorder, recurrent, moderate; N80.1 Endometriosis of ovary; N80.3 Endometriosis of pelvic peritoneum; Z20.822 Contact with and (suspected) exposure to COVID-19
CPT/HCPCS: 81025; 88305; 58555; 58662; 58578; 58350; U0003; J2704; J2250; J3010; J1100; J2175; J2710; J7120; J7030; J2405; J0690; U0002

== ENCOUNTER 2024-09-21 00:06 | Emergency (ER) | payer BC, MEDICARE ==
[2024-09-21] MEDS ORDERED: ONDANSETRON 4 MG/2 ML VIAL ONE (01:31)
[2024-09-21] MEDS ORDERED: NA CHLORIDE 0.9% 1,000 ML ONE (01:32)
[2024-09-21] MEDS ORDERED: KETOROLAC 30 MG/ML INJ ONE (01:35)
[2024-09-21 02:10] LABS: Absolute Lymphocytes (CBC) 0.8 K/uL (0.7-4.9); Absolute Monocytes 0.3 K/uL (0.1-1.3); Absolute Neutrophil 4.9 K/uL (1.8-8.0); Basophils % 0.4 % (0-1.3); Eosinophils % 0.7 % (0-4.4); Hematocrit 37.8 % (36.0-45.0); Hemoglobin 12.5 g/dL (12.0-15.0); Lymphocytes % 13.5 % (15.3-44.8); MCH 30.6 pg (27.0-35.0); MCHC 33.1 g/dL (32.0-36.0); MCV 92.4 fL (80-100); MPV 7.7 fL (7.6-11.3); Monocytes % 4.5 % (3.3-12.3); Neutrophils % 80.9 % (41.7-73.7); Platelets 299 thou/uL (152-406); RBC Red Blood Cell Count 4.09 M/uL (3.86-4.86); Red Cell Distribution Width 13.3 % (12.1-15.2)
[2024-09-21 02:22] LABS: Albumin/Globulin Ratio 1.1 (1.1-1.8); Alkaline Phosphatase 66 U/L (45-117); Anion Gap 7.3 mEq/L (5.0-15.0); BUN Blood Urea Nitrogen 12 mg/dL (7-18); Bicarbonate 28 mEq/L (21-32); Bilirubin Total 1.1 mg/dL (0.2-1.0); Globulin 3.8 g/dL (2.3-3.5); Glomerular Filtration Rate 107 ml/min (=/>90); Glucose Level 100 mg/dL (74-106); Lipase 31 U/L (13-75); Potassium 3.3 mEq/L (3.5-5.1); Protein, Total 7.8 g/dL (6.4-8.2); Sodium Level 138 mEq/L (136-145)
[2024-09-21 02:27] LABS: SARS-CoV-2 Antigen CONTROL BLUE LINE VIS/BG OK; SARS-CoV-2 Antigen Rapid Res Negative (Negative)
[2024-09-21 02:38] LABS: ALT/SGPT < 14 U/L (13-56); AST/SGOT < 10 U/L (15-37); HCG, Quantitative < 1 mIU/mL (1-3)
[2024-09-21] MEDS ORDERED: POTASSIUM CL SA 10 MEQ TAB PO ONE (02:44)
--- NOTE | 2024-09-21 02:45 | ER ---
Nurse's Notes [facility] Name: Celeste Martinez Age: 24 yrs Sex: Female : 2000 Arrival Date: 09/21/2024 Time: 00:06 Bed 20 Private MD: Diagnosis: Nausea with vomiting, unspecified;Hypokalemia Presentation: 09/21 00:42 Chief complaint: Patient states: throwing up with fever all day. Coronavirus screen: vc1 Client denies travel out of the [place] in the last 14 days. difficulty breathing, fatigue, fever, nausea, vomiting. Client presents with at least one sign or symptom that may indicate coronavirus-19. Ebola Screen: Patient negative for fever greater than or equal to 101.5 degrees Fahrenheit, and additional compatible Ebola Virus Disease symptoms Patient denies exposure to infectious person. Patient denies travel to an Ebola-affected area in the 21 days before illness onset. No symptoms or risks identified at this time. Initial Sepsis Screen: Does the patient meet any 2 criteria? No. Patient's initial sepsis screen is negative. Does the patient have a suspected source of infection? No. Patient's initial sepsis screen is negative. Risk Assessment: Do you want to hurt yourself or someone else? Patient reports no desire to harm self or others. Onset of symptoms was September 20, 2024. 00:42 Method Of Arrival: Ambulatory vc1 00:42 Acuity: FREDDY 4 vc1 Triage Assessment: 00:46 General: Appears in no apparent distress. uncomfortable, ill, slender, well groomed, vc1 well developed, well nourished, Behavior is calm, cooperative, appropriate for age. Pain: Complains of pain in epigastric area Pain does not radiate. Pain currently is 5 out of 10 on a pain scale. at worst was 10 out of 10 on a pain scale. Quality of pain is described as pressure. EENT: No deficits noted. No signs and/or symptoms were reported regarding the EENT system. Neuro: No deficits noted. Cardiovascular: Capillary refill < 3 seconds Patient's skin is warm and dry. Respiratory: Airway is patent Respiratory effort is even, unlabored, Respiratory pattern is regular, symmetrical. GI: Abdomen is flat, non-distended, Reports epigastric pain, intolerance of fluids, intolerance of food, nausea, vomiting. : No deficits noted. No signs and/or symptoms were reported regarding the genitourinary system. Derm: Skin is intact, is healthy with good turgor, Skin is dry, Skin is normal, Skin temperature is warm. Musculoskeletal: No deficits noted. No signs and/or symptoms reported regarding the musculoskeletal system. 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 - Infectious Disease History:: Denies. - Social history:: Smoking status: Patient denies any tobacco usage or history of. Screenin:45 Abuse screen: Denies threats or abuse. Nutritional screening: No deficits noted. vc1 Tuberculosis screening: No symptoms or risk factors identified. 00:49 [facility] ED Fall Risk Assessment (Adult) History of falling in the last 3 months, vc1 including since admission No falls in past 3 months (0 pts) Confusion or Disorientation No (0 pts) Intoxicated or Sedated No (0 pts) Impaired Gait No (0 pts) Mobility Assist Device Used No (0 pt) Altered Elimination No (0 pt) Score/Fall Risk Level 0 - 2 = Low Risk Oriented to surroundings, Maintained a safe environment, Educated pt \T\ family on fall prevention, incl call for assistance when getting out of bed. Assessment: 01:43 Reassessment: Patient appears in no apparent distress at this time. Patient and/or jb4 family updated on plan of care and expected duration. Pain level reassessed. Patient is alert, oriented x 3, equal unlabored respirations, skin warm/dry/pink. 02:25 Reassessment: Patient and/or family updated on plan of care and expected duration. Pain rg5 level reassessed. Patient is alert, oriented x 3, equal unlabored respirations, skin warm/dry/pink. Patient states feeling better. Patient states symptoms have improved. Vital Signs: 00:42 Pulse 99; Resp 14; Temp 98.7; Pulse Ox 96% ; Weight 39.01 kg; Height 5 ft. 1 in. ; Pain vc1 510; 00:47 BP 89 / 68; vc1 01:43 BP 100 / 69; Pulse 72; Resp 16; Pulse Ox 98% on R/A; jb4 02:23 BP 103 / 66; Pulse 75; Resp 17; Pulse Ox 99% on R/A; rg5 00:42 Body Mass Index 16.25 (39.01 kg, 154.94 cm) vc1 00:42 Pain Scale: Adult vc1 00:47 Map 78 vc1 ED Course: 00:09 Patient arrived in ED. ra3 00:22 Tello Ames FNP-C is PHCP. dr5 00:22 Johnie Fraser MD is Attending Physician. dr5 00:44 Triage completed. vc1 00:45 Arm band placed on right wrist. vc1 00:50 Patient has correct armband on for positive identification. Bed in low position. Call vc1 light in reach. 00:57 Chest Pa And Lat (2 Views) XRAY In Process Unspecified. EDMS 01:27 Inserted saline lock: 20 gauge in right antecubital area, using aseptic technique. fu Blood collected. 01:28 CBC with Diff Sent. fu 01:28 CMP Sent. fu 01:28 Lipase Sent. fu 02:23 Ag Baez, RN is Primary Nurse. rg5 02:47 Provided Education on: post er care. rg5 02:47 No provider procedures requiring assistance completed. rg5 02:48 IV discontinued, bleeding controlled, No redness/swelling at site. Pressure dressing rg5 applied. Administered Medications: 01:42 Drug: Ondansetron IVP 4 mg IVP once; over 2 minutes Route: IVP; Site: right antecubital;jb4 02:24 Follow up: Response: No adverse reaction rg5 01:42 Drug: NS 0.9% IV 1000 ml IV at 1 bolus Per protocol; to be given as a bolus over 60 jb4 minutes Route: IV; Rate: 1 bolus; Site: right antecubital; 02:00 Follow up: IV Status: Completed infusion; IV Intake: 1000ml rg5 01:43 Drug: TORadol - Ketorolac IVP 15 mg IVP once Route: IVP; Site: right antecubital; jb4 02:24 Follow up: Response: No adverse reaction; Pain is decreased rg5 02:40 Drug: Potassium Chloride PO 40 mEq PO once Route: PO; rg5 02:48 Follow up: Response: No adverse reaction rg5 Medication: 00:50 VIS not applicable for this client. vc1 Intake: 02:00 IV: 1000ml; Total: 1000ml. rg5 Outcome: 02:45 Discharge ordered by . dr5 02:55 Discharged to home ambulatory, rg5 02:55 Condition: good 02:55 Discharge instructions given to patient, Instructed on discharge instructions, follow up and referral plans. Demonstrated understanding of instructions, follow-up care, medications, Prescriptions given X 1, 02:56 Patient left the ED. rg5 Signatures: Dispatcher [employer] EDMS Jorge Manning RN RN jb4 Roverto Jasso RN RN Yohana Esparza RN RN vc1 Luz Mcdremott ra3 Ag Baez RN RN rg5 Tello Ames, ROOF BOLTER OPERATOR-C ROOF BOLTER OPERATOR-[facility]5
--- NOTE | 2024-09-21 02:45 | EDPHYS ---
Physician Documentation [facility] Name: Celeste Martinez Age: 24 yrs Sex: Female : 2000 Arrival Date: 09/21/2024 Time: 00:06 Bed 20 Private MD: ED Physician Johnie Fraser HPI: 09/21 02:45 This 24 yrs old Female presents to ER via Ambulatory with complaints of Flu dr5 Symptoms. 02:46 Onset: The symptoms/episode began/occurred today. Patient is a 24-year-old female dr5 presenting with upper abdominal pain with nausea vomiting that started this morning. Patient denies fever. Patient denies eating any new or strange foods. Patient denies sick contacts. 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 - Infectious Disease History:: Denies. - Social history:: Smoking status: Patient denies any tobacco usage or history of. ROS: 02:46 Constitutional: as per hpi dr5 Exam: 02:46 Constitutional: This is a well developed, well nourished patient who is awake, alert, dr5 and in no acute distress. ENT: Nares patent. No nasal discharge, no septal abnormalities noted. Tympanic membranes are normal and external auditory canals are clear. Oropharynx with no redness, swelling, or masses, exudates, or evidence of obstruction, uvula midline. Mucous membranes moist. Neck: Trachea midline, no thyromegaly or masses palpated, and no cervical lymphadenopathy. Supple, full range of motion without nuchal rigidity, or vertebral point tenderness. No Meningismus. Chest/axilla: Normal chest wall appearance and motion. Nontender with no deformity. No lesions are appreciated. Cardiovascular: Regular rate and rhythm with a normal S1 and S2. Normal PMI, no JVD. No pulse deficits. Abdomen/GI: Soft, non-tender, non-distended Back: No spinal tenderness. No costovertebral tenderness. Full range of motion. Skin: Warm, dry with normal turgor. Normal color with no rashes, no lesions, and no evidence of cellulitis. MS/ Extremity: Pulses equal, no cyanosis. Neurovascular intact. Full, normal range of motion. Neuro: Awake and alert, GCS 15, oriented to person, place, time, and situation. Cranial nerves II-XII grossly intact. Motor strength 5/5 in all extremities. Sensory grossly intact. Cerebellar exam normal. Normal gait. Vital Signs: 00:42 Pulse 99; Resp 14; Temp 98.7; Pulse Ox 96% ; Weight 39.01 kg; Height 5 ft. 1 in. ; Pain vc1 5/10; 00:47 BP 89 / 68; vc1 01:43 BP 100 / 69; Pulse 72; Resp 16; Pulse Ox 98% on R/A; jb4 02:23 BP 103 / 66; Pulse 75; Resp 17; Pulse Ox 99% on R/A; rg5 00:42 Body Mass Index 16.25 (39.01 kg, 154.94 cm) vc1 00:42 Pain Scale: Adult vc1 00:47 Map 78 vc1 MDM: 00:31 Medical Screening Exam initiated dr5 02:46 Differential diagnosis: viral Infection, bacterial infection, URI. Data reviewed: vital dr5 signs, nurses notes. I considered the following discharge prescriptions or medication management in the emergency department Medications were administered in the Emergency Department. See MAR. Test considered but Not performed: CT: Consider CT scan if labs were abnormal.. Care significantly affected by the following chronic conditions: BPD, depression. Care significantly affected by the following Social Determinants of Health: Poor access to healthcare and/or lack of insurance. Counseling: I had a detailed discussion with the patient and/or guardian regarding the historical points, exam findings, and any diagnostic results supporting the discharge/admit diagnosis, lab results, radiology results, the need for outpatient follow up, for definitive care, a family practitioner, to return to the emergency department if symptoms worsen or persist or if there are any questions or concerns that arise at home. Medication response: Response to treatment: the patient's symptoms have resolved after treatment, the patient's pain is gone. ED course: Patient's nausea has resolved. Potassium noted to be 3.3. Replaced with 40 mill equivalents potassium in the ER. Will send patient home with Zofran. COVID, flu, and lab work unremarkable. Recommended bland diet. Patient passed p.o. in ER. Recommended increased hydration and PCP follow-up as needed. 09/21 00:22 Order name: SARS RAPID; Complete Time: 02: dr5 09/21 00:22 Order name: Influenza Screen (a \T\ B) dr5 09/21 00:22 Order name: Strep dr5 09/21 01:15 Order name: CBC with Diff; Complete Time: 02:22 dr5 09/21 01:15 Order name: CMP; Complete Time: 02:39 dr5 09/21 01:15 Order name: Lipase; Complete Time: 02:39 dr5 09/21 01:15 Order name: HCG-Quantitative; Complete Time: 02:39 dr5 09/21 00:22 Order name: Chest Pa And Lat (2 Views) XRAY dr5 09/21 01:15 Order name: IV Saline Lock; Complete Time: : dr5 09/21 01:15 Order name: Labs collected and sent; Complete Time: : dr5 Administered Medications: 01:42 Drug: Ondansetron IVP 4 mg IVP once; over 2 minutes Route: IVP; Site: right antecubital;jb4 02:24 Follow up: Response: No adverse reaction rg5 01:42 Drug: NS 0.9% IV 1000 ml IV at 1 bolus Per protocol; to be given as a bolus over 60 jb4 minutes Route: IV; Rate: 1 bolus; Site: right antecubital; 02:00 Follow up: IV Status: Completed infusion; IV Intake: 1000ml rg5 01:43 Drug: TORadol - Ketorolac IVP 15 mg IVP once Route: IVP; Site: right antecubital; jb4 02:24 Follow up: Response: No adverse reaction; Pain is decreased rg5 02:40 Drug: Potassium Chloride PO 40 mEq PO once Route: PO; rg5 02:48 Follow up: Response: No adverse reaction rg5 Disposition Summary: 09/21/24 02:45 Discharge Ordered Notes: Location: Home dr5 Condition: Stable dr5 Diagnosis - Nausea with vomiting, unspecified dr5 - Hypokalemia dr5 Followup: dr5 - With: Emergency Department - When: As needed - Reason: Worsening of condition Followup: dr5 - With: Private Physician - When: 1 - 2 days - Reason: Recheck today's complaints, Continuance of care, Re-evaluation by your physician Discharge Instructions: - Discharge Summary Sheet dr5 - Potassium Content of Foods dr5 - Nausea and Vomiting, Adult dr5 Forms: - Work release form dr5 - Medication Reconciliation Form dr5 - Patient Portal Instructions dr5 - Leadership Thank You Letter dr5 Prescriptions: - Zofran 4 mg Oral Tablet - take 1 tablet ORAL route every 12 hours As needed; 20 tablet; Refills: 0, dr5 Product Selection Permitted Signatures: Dispatcher [employer] EDMS Jorge Manning, RN RN jb4 Yohana Catalan RN RN vc1 Ag Baez RN RN rg5 Tello Ames, BRIANNA-C CERTIFICATION AND SELECTION SPECIALIST-Cdr5 Corrections: (The following items were deleted from the chart) 00:23 00:23 SARS-COV-2 Antigen Rapid+I.LAB.BRZ ordered. EDMS EDMS 00:23 00:23 Influenza Screen (A \T\ B)+BA.LAB.BRZ ordered. EDMS EDMS 00:23 00:23 Group A Streptococcus Rapid Sc+BA.LAB.BRZ ordered. EDMS EDMS 00:23 00:23 Chest Pa And Lat (2 Views)+RAD.RAD.BRZ ordered. EDMS EDMS
[2024-09-21 04:32] VITALS: TEMP 98.7
[2024-09-21 04:41] VITALS: BP 103/66; O2SAT 99
--- NOTE | 2024-09-21 05:03 | RAD REPORT ---
EXAM: XR Chest, 2 Views CLINICAL HISTORY: The patient is 24 years old and is Female; Pain;Cough TECHNIQUE: Frontal and lateral views of the chest. COMPARISON: No relevant prior studies available. FINDINGS: Lungs: Unremarkable. No consolidation. Pleural space: Unremarkable. No pneumothorax. Heart: Unremarkable. Mediastinum: Unremarkable. Normal mediastinal contour. Bones/joints: No acute findings. IMPRESSION: No acute findings in the chest. Electronically signed by: Alex Wen MD 09/21/2024 01:40 AM CDT 8 Due to temporary technical issues with the PACS/[employer] reporting system, reports are being jim d by the in-house radiologist without review as a courtesy to ensure prompt reporting the interpreting radiologist is fully responsible for the content of the report. Transcribed Date/Time: 09/21/2024 5:02 AM
== END 2024-09-21 02:56 | disposition home or self-care (01) ==
LOC: ER 00:06
DX: E87.6 Hypokalemia (principal); Z11.52 Encounter for screening for COVID-19
CPT/HCPCS: 36415; 71046; 80053; 83690; 84702; 85025; 87070; 87081; 87804; 87811; J2405; J7030

== ENCOUNTER 2025-07-09 11:33 | Emergency (ER) | payer MEDICARE, SELFPAY ==
[2025-07-09 12:25] LABS: Influenza A Ag Negative; Influenza B Ag Negative; SARS-CoV-2 Antigen Rapid Res Negative (Negative)
--- NOTE | 2025-07-09 12:31 | ER ---
Nurse's Notes [facility] Name: Celeste Martinez Age: 25 yrs Sex: Female : 2000 Arrival Date: 07/09/2025 Time: 11:33 Bed IW2 Private MD: Diagnosis: Other acute sinusitis;Acute serous otitis media, left ear Presentation: 07/09 11:46 Chief complaint: Patient states: C/O sore throat, drainage, hoarse voice that has ar8 worsened since Friday. Coronavirus screen: At this time, the client does not indicate any symptoms associated with coronavirus-19. Ebola Screen: No symptoms or risks identified at this time. Initial Sepsis Screen: Does the patient meet any 2 criteria? No. Patient's initial sepsis screen is negative. Does the patient have a suspected source of infection? No. Patient's initial sepsis screen is negative. Risk Assessment: Do you want to hurt yourself or someone else? Patient reports no desire to harm self or others. Onset of symptoms was July 04, 2025. 11:46 Method Of Arrival: Ambulatory ar8 11:46 Acuity: FREDDY 4 ar8 Triage Assessment: 11:50 General: Appears in no apparent distress. Behavior is calm, cooperative. Pain: ar8 Complains of pain in sore throat Pain currently is 10 out of 10 on a pain scale. EENT: Reports sore throat. Historical: - Allergies: 11:50 No Known Allergies; ar8 - Home Meds: 11:50 None [Active]; ar8 - PMHx: 11:50 Bipolar disorder; Depression; ar8 - PSHx: 11:50 Cholecystectomy; ar8 - Immunization history:: Adult Immunizations up to date, Client reports receiving the 1st dose of the Covid vaccine. - Infectious Disease History:: Denies. - Social history:: Smoking status: Patient denies any tobacco usage or history of. Screenin:38 Abuse screen: Denies threats or abuse. Denies injuries from another. Nutritional ss screening: No deficits noted. Tuberculosis screening: Never had TB. Assessment: 12:38 General: Appears in no apparent distress. comfortable, Behavior is calm, cooperative. ss General: Reports feeling ill for 12-24 hours. Neuro: Level of Consciousness is awake, alert, obeys commands, Oriented to person, place, time, situation. Respiratory: Airway is patent Respiratory effort is even, unlabored, Respiratory pattern is regular, symmetrical. GI: Patient currently denies diarrhea, nausea, vomiting. Derm: Skin is intact, is healthy with good turgor, Skin is pink, warm \T\ dry. normal. Vital Signs: 11:46 BP 96 / 81; Pulse 93; Resp 20; Temp 98.3(O); Pulse Ox 97% ; Weight 43.54 kg; Height 5 ar8 ft. 1 in. ; Pain 10/10; 11:46 Body Mass Index 18.14 (43.54 kg, 154.94 cm) ar8 11:46 Pain Scale: Adult ar8 ED Course: 11:35 Patient arrived in ED. ts1 11:39 [facility] Whitmore [facility]C [facility]. sb4 11:39 Nettie Chadwick MD is Attending Physician. sb4 11:49 COVID swab sent to lab. Strep swab sent to lab. ap3 11:50 Triage completed. ar8 11:52 Arm band placed on right wrist. ar8 12:38 No provider procedures requiring assistance completed. Patient did not have IV access ss during this emergency room visit. 12:38 Patient has correct armband on for positive identification. Bed in low position. ss Administered Medications: No medications were administered Medication: 12:38 VIS not applicable for this client. ss Outcome: 12:30 Discharge ordered by . sb4 12:38 Discharged to home ambulatory, ss 12:38 Condition: good 12:38 Discharge instructions given to patient, family, Instructed on discharge instructions, follow up and referral plans. medication usage, Demonstrated understanding of instructions, follow-up care, medications, Prescriptions given X 2, 12:40 Patient left the ED. ss Signatures: Danisha Gan, RN RN ss Veronica Boyce RN RN ap3 Ronel Whitmore PA-C PA-C sb4 [place] PAS PAS ts1 Rex Mendoza RN RN ar8
--- NOTE | 2025-07-09 12:31 | EDPHYS ---
Physician Documentation [facility] Name: Celeste Martinez Age: 25 yrs Sex: Female : 2000 Arrival Date: 07/09/2025 Time: 11:33 Bed IW2 Private MD: ED Physician Nettie Chadwick HPI: 07/09 12:13 This 25 yrs old Female presents to ER via Ambulatory with complaints of sb4 Drainage, Sore Throat. 12:13 Patient reports sore throat, hoarse voice, congestion, ear fullness, cough x 5 days. sb4 States that her son has also been sick with similar symptoms. Unsure if she has had a fever or not. Has been taking [id number] medications without significant improvement in symptoms. Endorses nausea, no vomiting. Historical: - Allergies: 11:50 No Known Allergies; ar8 - Home Meds: 11:50 None [Active]; ar8 - PMHx: 11:50 Bipolar disorder; Depression; ar8 - PSHx: 11:50 Cholecystectomy; ar8 - Immunization history:: Adult Immunizations up to date, Client reports receiving the 1st dose of the Covid vaccine. - Infectious Disease History:: Denies. - Social history:: Smoking status: Patient denies any tobacco usage or history of. ROS: 12:13 Constitutional: Negative for fever, chills, and weight loss, sb4 12:13 ENT: Positive for ear pain, hoarseness, nasal discharge, sinus congestion, sore throat, 12:13 Abdomen/GI: Positive for nausea, 12:13 All other systems are negative, Exam: 12:13 Constitutional: This is a well developed, well nourished patient who is awake, alert, sb4 and in no acute distress. Head/Face: Normocephalic, atraumatic. Eyes: Extra-ocular motions intact. Periorbital areas with no swelling, redness, or edema. ENT: Mucous membranes moist. Cardiovascular: Regular rate and rhythm with a normal S1 and S2. Respiratory: No increased work of breathing, no retractions or nasal flaring. Abdomen/GI: Soft, non-tender, no distension. Skin: Warm, dry with normal turgor. Normal color with no rashes, no lesions, and no evidence of cellulitis. 12:13 ENT: TM's: fluid levels, on the left, Posterior pharynx: is normal, no acute changes, Vital Signs: 11:46 BP 96 / 81; Pulse 93; Resp 20; Temp 98.3(O); Pulse Ox 97% ; Weight 43.54 kg; Height 5 ar8 ft. 1 in. ; Pain 10/10; 11:46 Body Mass Index 18.14 (43.54 kg, 154.94 cm) ar8 11:46 Pain Scale: Adult ar8 MDM: 11:42 Medical Screening Exam initiated sb4 12:14 Differential diagnosis: viral Infection, bacterial infection, URI, bronchitis. sb4 12:31 Data reviewed: vital signs, nurses notes, lab test result(s), and as a result, I will sb4 discharge patient. Counseling: I had a detailed discussion with the patient and/or guardian regarding the historical points, exam findings, and any diagnostic results supporting the discharge/admit diagnosis, lab results, the need for outpatient follow up, for definitive care, to return to the emergency department if symptoms worsen or persist or if there are any questions or concerns that arise at home. 07/09 11:48 Order name: COVID-19 Ag + Flu A+B Ag; Complete Time: 12:30 ap3 07/09 11:48 Order name: Group A Streptococcus Rapid; Complete Time: 12:11 ap3 07/09 12:12 Order name: Throat Culture EDMS Administered Medications: No medications were administered Disposition Summary: 07/09/25 12:30 Discharge Ordered Notes: Location: Home sb4 Problem: new sb4 Symptoms: have improved sb4 Condition: Stable sb4 Diagnosis - Other acute sinusitis sb4 - Acute serous otitis media, left ear sb4 Followup: sb4 - With: Emergency Department - When: As needed - Reason: Trouble breathing, Worsening of condition Discharge Instructions: - Discharge Summary Sheet sb4 - Otitis Media, Adult sb4 - Sinusitis, Adult sb4 - How to Perform a Sinus Rinse, [id number] sb4 Forms: - Antibiotic Education sb4 - Patient Portal Instructions sb4 - Leadership Thank You Letter sb4 Prescriptions: - Augmentin 875-125 mg Oral Tablet - take 1 tablet ORAL route every 12 hours for 10 days; 20 tablet; Refills: 0, sb4 Product Selection Permitted - Medrol (Yousuf) 4 mg Oral Tablets, Dose Pack - take 1 tablet ORAL route as directed - follow package instructions; 1 packet; sb4 Refills: 0, Product Selection Permitted Signatures: Dispatcher [employer] Ronel Agee PA-C PAFaheem sb4 Rex Mendoza, RN RN ar8
[2025-07-09 16:56] VITALS: BP 96/81; TEMP 98.3; O2SAT 97
== END 2025-07-09 12:40 | disposition home or self-care (01) ==
LOC: ER 11:33
DX: J01.80 Other acute sinusitis (principal); H65.02 Acute serous otitis media, left ear; Z11.52 Encounter for screening for COVID-19
CPT/HCPCS: 36415; 87070; 87428; 99283

== ENCOUNTER 2025-08-21 13:42 | Emergency (ER) | payer SELFPAY ==
--- NOTE | 2025-08-21 14:03 | ER ---
Nurse's Notes [facility] Name: Celeste Martinez Age: 25 yrs Sex: Female : 2000 Arrival Date: 08/21/2025 Time: 13:42 Bed 17 Private MD: Diagnosis: Suicidal statements, depression Presentation: 08/21 13:50 Chief complaint: Patient states: Pt BIB EMS under an KYLAH due to pt expressing SI to jp5 mother. Pt states she is not suicidal, she just told her mom those things to upset her. Coronavirus screen: Client denies travel out of the [place] in the last 14 days. At this time, the client does not indicate any symptoms associated with coronavirus-19. Ebola Screen: No symptoms or risks identified at this time. Initial Sepsis Screen: Does the patient meet any 2 criteria? No. Patient's initial sepsis screen is negative. Does the patient have a suspected source of infection? No. Patient's initial sepsis screen is negative. Risk Assessment: Do you want to hurt yourself or someone else? Patient reports no desire to harm self or others. 13:50 Method Of Arrival: EMS: [facility]5 13:50 Acuity: FREDDY 2 5 Triage Assessment: 13:52 General: Appears in no apparent distress. comfortable, Behavior is calm, cooperative. jp5 Pain: Denies pain. Neuro: No deficits noted. Level of Consciousness is awake, alert, obeys commands, Oriented to person, place, time, situation. Cardiovascular: No deficits noted. Respiratory: No deficits noted. GI: No deficits noted. : No deficits noted. Historical: - Allergies: 13:51 No Known Allergies; jp5 - PMHx: 13:51 Bipolar disorder; Depression; jp5 - PSHx: 13:51 Cholecystectomy; jp5 - Immunization history:: Adult Immunizations up to date. - Infectious Disease History:: Denies. - Social history:: Smoking status: Patient denies any tobacco usage or history of. Patient/guardian denies using alcohol, street drugs. Screenin:53 [facility] ED Fall Risk Assessment (Adult) History of falling in the last 3 months, 5 including since admission No falls in past 3 months (0 pts) Confusion or Disorientation No (0 pts) Intoxicated or Sedated No (0 pts) Impaired Gait No (0 pts) Mobility Assist Device Used No (0 pt) Altered Elimination No (0 pt) Score/Fall Risk Level 0 - 2 = Low Risk Oriented to surroundings, Maintained a safe environment, Educated pt \\T\\ family on fall prevention, incl call for assistance when getting out of bed, Assessed \\T\\ reinforced patient's understanding of fall precautions, Provided non-skid footwear, Hourly rounding (assess needs \\T\\ fall precautionary measures) done, Used ambulatory aids as needed (educated on \\T\\ assisted with), Used gait belt as appropriate. Abuse screen: Denies threats or abuse. Denies injuries from another. Nutritional screening: No deficits noted. Tuberculosis screening: No symptoms or risk factors identified. Assessment: 13:55 General: VIEW TRIAGE. jp5 Psych: 13:50 [place] Suicide Severity Screening: In the past month, have you wished you were jp5 or wished you could go to sleep and not wake up? Patient responds "No." "In the past month, have you actually had any thoughts of killing yourself?" Patient responds "no." "In your lifetime, have you ever done anything, started to do anything, or prepared to do anything to end your life?" Patient responds "yes." Patient reports suicidal intent occurred greater than 3 months prior. Subjective:. Objective: Patient is cooperative, Speech is normal, Affect is appropriate. Interventions: Removed personal items and placed in bag. Patient placed in hospital gown. Searched person for dangerous items. Safety Checks: Personal items have been removed. Door is open. No visitors are present at this time. pt denies SI. Pt denies substance abuse. Commitment: pt is not suicidal. Vital Signs: 13:50 BP 115 / 72; Pulse 65; Resp 18; Temp 98(O); Pulse Ox 99% on R/A; Weight 42.64 kg; jp5 Height 5 ft. 1 in. ; Pain 0/10; 13:50 Body Mass Index 17.76 (42.64 kg, 154.94 cm) 5 13:50 Pain Scale: Adult 5 ED Course: 13:43 Patient arrived in ED. eb 13:44 Nettie Chadwick MD is Attending Physician. sp3 13:47 Alivia Baires RN is Primary Nurse. jp5 13:51 Triage completed. jp5 13:52 Arm band placed on right wrist. jp5 13:53 Bed in low position. Side rails up X 1. sitter at bedside. Provided Education on: jp5 Mental health process. 13:53 No provider procedures requiring assistance completed. jp5 Administered Medications: No medications were administered Medication: 13:53 VIS not applicable for this client. jp5 Outcome: 14:02 Discharge ordered by . sp3 14:13 Discharged to home ambulatory, jp5 14:13 Condition: stable 14:13 Discharge instructions given to patient, Instructed on discharge instructions, follow up and referral plans. Demonstrated understanding of instructions, follow-up care, 14:13 Patient left the ED. jp5 Signatures: Svetlana Plascencia Setul, MD MD sp3 Alivia Baires, RN RN jp5
--- NOTE | 2025-08-21 14:03 | EDPHYS ---
Physician Documentation [facility] Name: Celeste Martinez Age: 25 yrs Sex: Female : 2000 Arrival Date: 08/21/2025 Time: 13:42 Bed 17 Private MD: ED Physician Nettie Chadwick HPI: 08/21 13:56 This 25 yrs old Female presents to ER via EMS with complaints of suicidal sp3 statements made. 13:56 25-year-old female with history of bipolar disease not on medication since 2017 who sp3 recently moved in with her mother due to circumstance presents to the ED via EMS for statements made while in an emotional argument with her mom. Patient states that her mom is her "trigger". She made statements of how she should "not be here anymore" while she states she was being told that she is worthless and not contributing. Patient states that those were made during an emotional outburst and she is not suicidal whatsoever. She also denies homicidal thoughts. She denies ever having psychosis nor does she have psychosis currently. ROS otherwise negative. She is here under KYLAH.. Historical: - Allergies: 13:51 No Known Allergies; jp5 - PMHx: 13:51 Bipolar disorder; Depression; jp5 - PSHx: 13:51 Cholecystectomy; jp5 - Immunization history:: Adult Immunizations up to date. - Infectious Disease History:: Denies. - Social history:: Smoking status: Patient denies any tobacco usage or history of. Patient/guardian denies using alcohol, street drugs. ROS: 14:00 Constitutional: Negative for fever, chills, and weight loss, Eyes: Negative for injury, sp3 pain, redness, and discharge, ENT: Negative for injury, pain, and discharge, Neck: Negative for injury, pain, and swelling, Cardiovascular: Negative for chest pain, palpitations, and edema, Respiratory: Negative for shortness of breath, cough, wheezing, and pleuritic chest pain, Abdomen/GI: Negative for abdominal pain, nausea, vomiting, diarrhea, and constipation, Back: Negative for injury and pain, MS/Extremity: Negative for injury and deformity, Skin: Negative for injury, rash, and discoloration, Neuro: Negative for headache, weakness, numbness, tingling, and seizure, Allergy/Immunology: Negative for hives, rash, and allergies, Endocrine: Negative for neck swelling, polydipsia, polyuria, polyphagia, and marked weight changes, Hematologic/Lymphatic: Negative for swollen nodes, abnormal bleeding, and unusual bruising, 14:00 All other systems are negative, Exam: 14:00 Constitutional: This is a well developed, well nourished patient who is awake, alert, sp3 and in no acute distress. Head/Face: Normocephalic, atraumatic. Eyes: Pupils equal round and reactive to light, extra-ocular motions intact. Lids and lashes normal. Conjunctiva and sclera are non-icteric and not injected. Cornea within normal limits. Periorbital areas with no swelling, redness, or edema. ENT: Nares patent. No nasal discharge, no septal abnormalities noted. External auditory canals are clear. Oropharynx with no redness, swelling, or masses, exudates, or evidence of obstruction, uvula midline. Mucous membranes moist. Neck: Trachea midline, no thyromegaly or masses palpated, and no cervical lymphadenopathy. Supple, full range of motion without nuchal rigidity, or vertebral point tenderness. No Meningismus. Chest/axilla: Normal chest wall appearance and motion. Nontender with no deformity. No lesions are appreciated. Cardiovascular: Regular rate and rhythm with a normal S1 and S2. No gallops, murmurs, or rubs. Normal PMI, no JVD. No pulse deficits. Respiratory: Lungs have equal breath sounds bilaterally, clear to auscultation and percussion. No rales, rhonchi or wheezes noted. No increased work of breathing, no retractions or nasal flaring. Abdomen/GI: Soft, non-tender, with normal bowel sounds. No distension or tympany. No guarding or rebound. No evidence of tenderness throughout. Back: No spinal tenderness. No costovertebral tenderness. Full range of motion. Skin: Warm, dry with normal turgor. Normal color with no rashes, no lesions, and no evidence of cellulitis. MS/ Extremity: Pulses equal, no cyanosis. Neurovascular intact. Full, normal range of motion. Neuro: Awake and alert, GCS 15, oriented to person, place, time, and situation. Cranial nerves II-XII grossly intact. Motor strength 5/5 in all extremities. Sensory grossly intact. Cerebellar exam normal. Normal gait. Psych: Awake, alert, with orientation to person, place and time. Behavior, mood, and affect are within normal limits. Vital Signs: 13:50 BP 115 / 72; Pulse 65; Resp 18; Temp 98(O); Pulse Ox 99% on R/A; Weight 42.64 kg; jp5 Height 5 ft. 1 in. ; Pain 0/10; 13:50 Body Mass Index 17.76 (42.64 kg, 154.94 cm) [facility] [place] 13:50 Pain Scale: Adult 5 MDM: 13:44 Medical Screening Exam initiated sp3 14:01 Data reviewed: vital signs, nurses notes. ED course: Patient is tearful but not sp3 suicidal whatsoever. She contracts for her safety. She also states she has multiple reasons to live especially her children. Her plan is to move in with a friend for the next week while she finds alternate living situation. She also states that her daughter's father will assist in this process. She has other people coming to her mom's house together her things were patient does not have to interact with her mother anymore. Patient is also not psychotic. Given these findings, patient is of sound mind and not suicidal and contracts for her safety. We will safely discharge her home. Patient knows that she may return here at any time if she has recurring thoughts of any kind.. Administered Medications: No medications were administered Disposition Summary: 08/21/25 14:02 Discharge Ordered Notes: Location: Home sp3 Condition: Stable sp3 Diagnosis - Suicidal statements, depression sp3 Followup: sp3 - With: Private Physician - When: Upon discharge from the Emergency Department - Reason: Recheck today's complaints Discharge Instructions: - Discharge Summary Sheet sp3 - Managing Depression, Adult sp3 Forms: - Medication Reconciliation Form sp3 - Antibiotic Education sp3 - Prescription Opioid Use sp3 - Patient Portal Instructions sp3 - Leadership Thank You Letter sp3 Signatures: Nettie Chadwick MD MD sp3 Alivia Baires RN RN jp5
[2025-08-21 14:28] VITALS: BP 115/72; TEMP 98; O2SAT 99
== END 2025-08-21 14:13 | disposition home or self-care (01) ==
LOC: ER 13:42
DX: R45.851 Suicidal ideations (principal); F32.A Depression, unspecified
CPT/HCPCS: 99283